=== PATIENT | female | born 1980 | race Caucasian/White ===

== ENCOUNTER 2017-03-07 08:47 | Emergency (ER) | payer OTHER, SELFPAY ==
[2017-03-07] MEDS ORDERED: Ondansetron HCl/PF 4 MG/2 ML Vial ONE (10:24)
[2017-03-07 10:35] LABS: Anion Gap 4 mmol/L (-14-95); T. Carbon Dioxide 26.8 mmol/L (1.0-85.0); pH (Venous) 7.385 (7.35-7.45); vO2 Saturation-calc 67.8 % (0.0-100.0)
[2017-03-07 10:56] LABS: #Eosinphils 0.1 thou/uL (0.0-0.7); #Lymphocytes 2.6 thou/uL (1.20-3.40); #Monocytes 0.2 thou/uL (0.11-0.59); #Neutrophils 3.7 thou/uL (1.40-6.50); %Basophils 0.1 % (0.0-1.0); %Eosinophils 1.8 % (0.0-10.0); %Lymphocytes 39.3 % (21.0-51.0); %Monocytes 2.7 % (0.0-10.0); Mean Platelet Volume 8.2 fL (7.4-10.4); Red Blood Cell (RBC) Count 4.56 mill/uL (4.20-5.40); White Blood Cell (WBC) Count 6.5 thou/uL (4.8-10.8)
[2017-03-07] MEDS ORDERED: Potassium Chloride 20 MEQ TAB ONE (11:03)
[2017-03-07] MEDS ORDERED: Insulin Regular 300 UNITS/3 ML VIAL ONE (11:09)
[2017-03-07 11:30] LABS: ALT (SGPT) 23 U/L (8-55); AST (SGOT) 38 U/L (5-34); Alkaline Phosphatase 110 U/L (40-150); Anion Gap 12 mmol/L (10-20); BUN (Urea Nitrogen) 20 mg/dL (7.0-18.7); Bilirubin, Total 0.2 mg/dL (0.2-1.2); Calc. Creatinine Clearance 0 mL/min (70-130); Calcium 9.4 mg/dL (7.8-10.44); Carbon Dioxide 26 mmol/L (22-29); Chloride 99 mmol/L (98-107); Estimated GFR-MDRD 65; Globulin 3.8 g/dL (2.4-3.5); Protein, Total 7.6 g/dL (6.0-8.3)
[2017-03-07 12:41] LABS: Bilirubin Negative (Negative); Blood, Urine Negative (Negative); Glucose, Urine (Dipstick) >=1000 mg/dL (Negative); Ketone, Urine Negative (Negative); Nitrite Negative (Negative); Protein, Urine (Dipstick) Negative (Neg-Trace); Urobilinogen 0.2 mg/dL (0.2-1.0)
[2017-03-07] MEDS ORDERED: Ketorolac Tromethamine 30 MG/ML VIAL ONE (12:51)
== END 2017-03-07 13:21 | disposition home or self-care (01) ==
LOC: ERS 08:47
DX: E10.65 Type 1 diabetes mellitus with hyperglycemia (principal); J44.9 Chronic obstructive pulmonary disease, unspecified; F41.9 Anxiety disorder, unspecified; F32.9 Major depressive disorder, single episode, unspecified
CPT/HCPCS: 36415; 36416; 80053; 81003; 82010; 82330; 82803; 85025; 96361; 96374; 96375; J1815; J1885; J2270; J2405

== ENCOUNTER 2017-04-08 21:40 | Emergency (ER) | payer SELFPAY ==
[2017-04-08 22:15] LABS: #Eosinphils 0.1 thou/uL (0.0-0.7); #Lymphocytes 3.9 thou/uL (1.20-3.40); #Monocytes 0.3 thou/uL (0.11-0.59); #Neutrophils 5.2 thou/uL (1.40-6.50); %Basophils 0.3 % (0.0-1.0); %Eosinophils 0.8 % (0.0-10.0); %Lymphocytes 40.7 % (21.0-51.0); %Monocytes 3.6 % (0.0-10.0); Hematocrit 49.6 % (36.0-47.0); Mean Platelet Volume 7.8 fL (7.4-10.4); Red Blood Cell (RBC) Count 5.57 mill/uL (4.20-5.40); White Blood Cell (WBC) Count 9.6 thou/uL (4.8-10.8)
[2017-04-08 22:32] LABS: ALT (SGPT) 46 U/L (8-55); AST (SGOT) 38 U/L (5-34); Alkaline Phosphatase 143 U/L (40-150); Anion Gap 18 mmol/L (10-20); BUN (Urea Nitrogen) 34 mg/dL (7.0-18.7); Bilirubin, Total 0.3 mg/dL (0.2-1.2); Calc. Creatinine Clearance 0 mL/min (70-130); Calcium 10.8 mg/dL (7.8-10.44); Carbon Dioxide 23 mmol/L (22-29); Chloride 103 mmol/L (98-107); Estimated GFR-MDRD 51; Globulin 4.7 g/dL (2.4-3.5); Protein, Total 9.3 g/dL (6.0-8.3)
[2017-04-08 22:56] LABS: Bilirubin Negative (Negative); Blood, Urine Negative (Negative); Glucose, Urine (Dipstick) Negative (Negative); Ketone, Urine Negative (Negative); Nitrite Negative (Negative); Protein, Urine (Dipstick) Negative (Neg-Trace); Urobilinogen 0.2 mg/dL (0.2-1.0)
--- NOTE | 2017-04-08 23:15 | CT ---
CT OF HEAD NONCONTRAST 04/08/17 INDICATION: Syncope. Reference made to 01/23/16 exam. FINDINGS: Redemonstration of cavum septum pellucidum et vergae. Ventricular system is normal in size. There is no acute intracranial hemorrhage, mass effect or midline shift. IMPRESSION: No acute intracranial abnormalities. POS: [facility]
[2017-04-08] MEDS ORDERED: Promethazine HCl 25 MG/ML VIAL ONE (23:59)
== END 2017-04-09 01:23 | disposition home or self-care (01) ==
LOC: ERS 21:40
DX: R55 Syncope and collapse (principal); E11.9 Type 2 diabetes mellitus without complications; Z79.4 Long term (current) use of insulin; W19.XXXA Unspecified fall, initial encounter; Y92.009 Unspecified place in unspecified non-institutional (private) residence as the place of occurrence of the external cause
CPT/HCPCS: 36415; 36416; 51701; 70450; 80053; 81003; 83605; 84703; 85025; 87040; 87086; 93005; 96361; 96374; A4353; J2550

== ENCOUNTER 2017-05-07 18:22 | Emergency (ER) | payer SELFPAY ==
[2017-05-07] MEDS ORDERED: Ketorolac Tromethamine 60 MG/2 ML VIAL ONE (19:42)
== END 2017-05-07 20:45 | disposition home or self-care (01) ==
LOC: ERS 18:22
DX: M62.838 Other muscle spasm (principal); G44.209 Tension-type headache, unspecified, not intractable; J44.9 Chronic obstructive pulmonary disease, unspecified; E11.9 Type 2 diabetes mellitus without complications; F41.9 Anxiety disorder, unspecified; F43.10 Post-traumatic stress disorder, unspecified; Z87.442 Personal history of urinary calculi
CPT/HCPCS: 96372; J1885

== ENCOUNTER 2017-06-01 03:27 | Emergency (ER) | payer SELFPAY | END 2017-06-01 04:29 | disposition left against medical advice (07) | LOC: ERS 03:27 | DX: Z53.21 Procedure and treatment not carried out due to patient leaving prior to being seen by health care provider (principal) ==

== ENCOUNTER 2017-06-01 04:29 | Emergency (ER) | payer OTHER ==
[2017-06-01] MEDS ORDERED: HYDROcodone/Acetaminophen 10/325 mg Tablet ONE (05:14)
[2017-06-01] MEDS ORDERED: Ketorolac Tromethamine 30 MG/ML VIAL ONE (05:14)
== END 2017-06-01 05:32 | disposition home or self-care (01) ==
LOC: SCSER 04:29
DX: K02.9 Dental caries, unspecified (principal)
CPT/HCPCS: 96372; J1885

== ENCOUNTER 2017-09-21 01:09 | Emergency (ER) | payer OTHER, SELFPAY ==
[2017-09-21] MEDS ORDERED: Ketorolac Tromethamine 30 MG/ML VIAL ONE (01:42)
[2017-09-21] MEDS ORDERED: predniSONE 20 MG TAB ONE (01:42)
== END 2017-09-21 02:05 | disposition home or self-care (01) ==
LOC: SCSER 01:09
DX: M54.2 Cervicalgia (principal); E11.9 Type 2 diabetes mellitus without complications; F41.9 Anxiety disorder, unspecified; F43.10 Post-traumatic stress disorder, unspecified; J44.9 Chronic obstructive pulmonary disease, unspecified; Z85.41 Personal history of malignant neoplasm of cervix uteri
CPT/HCPCS: 96372; J1885; J7506

== ENCOUNTER 2017-11-12 14:34 | Emergency (ER) | payer OTHER ==
[2017-11-12 15:42] LABS: #Basophils 0.1 thou/uL (0.0-0.2); #Eosinphils 0.1 thou/uL (0.0-0.7); #Lymphocytes 2.8 thou/uL (1.20-3.40); #Monocytes 0.3 thou/uL (0.11-0.59); #Neutrophils 3.9 thou/uL (1.40-6.50); %Eosinophils 1.4 % (0.0-10.0); %Lymphocytes 38.8 % (21.0-51.0); %Monocytes 3.8 % (0.0-10.0); %Neutrophils 55.1 % (42.0-75.0); Hemoglobin 12.6 g/dL (12.0-16.0); Mean Corpuscular HGB CONC 33.3 g/dL (32.0-36.0); Mean Corpuscular Hemoglobin 29.3 pg (27.0-31.0); Mean Corpuscular Volume 87.9 fl (81.0-99.0); Mean Platelet Volume 7.8 fL (7.4-10.4); Platelet Count 193 thou/uL (130-400); RBC Distribution Width 11.8 % (11.5-14.5); Red Blood Cell (RBC) Count 4.31 mill/uL (4.20-5.40); White Blood Cell (WBC) Count 7.2 thou/uL (4.8-10.8)
[2017-11-12 16:19] LABS: Bilirubin Negative (Negative); Blood, Urine Large (Negative); Clarity CLOUDY (Clear); Glucose, Urine (Dipstick) Negative (Negative); Leukocyte Negative (Negative); Nitrite Negative (Negative); Protein, Urine (Dipstick) Negative (Neg-Trace); Specific Gravity, Urine 1.022 (1.002-1.036); Urobilinogen 0.2 mg/dL (0.2-1.0); pH, Urine 5.5 (5.0-9.0)
[2017-11-12 16:22] LABS: Bacteria/HPF None Seen HPF (None Seen); Hyaline Casts/LPF 0-3 HYALINE CAST LPF (0-3 Hyaline); Pathc Cast-AUWi Flag 0.29 (0-2.49); Pregnancy Test - Urine (BHCG) Negative (Negative); Pregu Control Background? CLEAR/WHITE (CLR/WHITE); Pregu Control Bar Appear? YES (CONTROL BAR); RBC/HPF GREATER THAN 50-TNTC HPF (0-3); Specific Gravity 1.022 (1.002-1.036); Squamous Epithelial 0-3 HPF (0-3); WBC/HPF 0-3 HPF (0-3)
[2017-11-12] MEDS ORDERED: Ibuprofen 200 MG TAB ONE (17:34)
== END 2017-11-12 17:43 | disposition home or self-care (01) ==
LOC: ERS 14:34
DX: N93.9 Abnormal uterine and vaginal bleeding, unspecified (principal); R31.9 Hematuria, unspecified; E11.9 Type 2 diabetes mellitus without complications; J45.909 Unspecified asthma, uncomplicated; F41.9 Anxiety disorder, unspecified; F43.10 Post-traumatic stress disorder, unspecified; Z79.4 Long term (current) use of insulin; Z87.442 Personal history of urinary calculi
CPT/HCPCS: 36415; 81003; 81015; 81025; 84702; 85025; 86900; 86901; 99284

== ENCOUNTER 2018-02-13 10:30 | Emergency (ER) | payer OTHER, SELFPAY ==
[2018-02-13] MEDS ORDERED: Dextrose 50% Abboject 50 ML SYRINGE ONE (11:33)
[2018-02-13 12:19] LABS: #Lymphocytes 1.6 thou/uL (1.20-3.40); #Monocytes 0.3 thou/uL (0.11-0.59); #Neutrophils 5.4 thou/uL (1.40-6.50); %Basophils 0.4 % (0.0-1.0); %Eosinophils 0.3 % (0.0-10.0); %Lymphocytes 22.2 % (21.0-51.0); %Monocytes 3.9 % (0.0-10.0); %Neutrophils 73.1 % (42.0-75.0); Hemoglobin 11.5 g/dL (12.0-16.0); Mean Corpuscular Hemoglobin 28.7 pg (27.0-31.0); Mean Corpuscular Volume 89.6 fL (78.0-98.0); Mean Platelet Volume 7.8 fL (7.4-10.4); Platelet Count 222 thou/uL (130-400); RBC Distribution Width 12.5 % (11.5-14.5); Red Blood Cell (RBC) Count 4.02 mill/uL (4.20-5.40); White Blood Cell (WBC) Count 7.4 thou/uL (4.8-10.8)
[2018-02-13 12:39] LABS: BHCG - Serum Negative (NEGATIVE); Pregs Control Background? CLEAR/WHITE (CLR/WHITE); Pregs Control Bar Appear? YES (CONTROL BAR)
[2018-02-13 12:40] LABS: CKMB 1.4 ng/mL (0-6.6); Troponin I Less than 0.010 ng/mL (< 0.028)
[2018-02-13 12:43] LABS: ALT (SGPT) 20 U/L (8-55); AST (SGOT) 19 U/L (5-34); Albumin 3.6 g/dL (3.5-5.0); Alkaline Phosphatase 102 U/L (40-150); Anion Gap 10 mmol/L (10-20); BUN (Urea Nitrogen) 10 mg/dL (7.0-18.7); Bilirubin, Total 0.2 mg/dL (0.2-1.2); Calc. Creatinine Clearance 0 mL/min (70-130); Carbon Dioxide 26 mmol/L (22-29); Chloride 105 mmol/L (98-107); Estimated GFR-MDRD 83; Globulin 3.2 g/dL (2.4-3.5); Glucose 101 mg/dL (70-105); Potassium 3.1 mmol/L (3.5-5.1); Protein, Total 6.8 g/dL (6.0-8.3); Sodium 138 mmol/L (136-145)
[2018-02-13 13:25] LABS: Bilirubin Negative (Negative); Blood, Urine Trace (Negative); Clarity CLEAR (Clear); Glucose, Urine (Dipstick) Negative (Negative); Leukocyte Negative (Negative); Nitrite Negative (Negative); Protein, Urine (Dipstick) Negative (Neg-Trace); Specific Gravity, Urine 1.015 (1.002-1.036); Urobilinogen 0.2 mg/dL (0.2-1.0); pH, Urine 5.5 (5.0-9.0)
[2018-02-13 13:27] LABS: Bacteria/HPF None Seen HPF (None Seen); Hyaline Casts/LPF 0-3 HYALINE CAST LPF (0-3 Hyaline); Pathc Cast-AUWi Flag 0.87 (0-2.49); RBC/HPF 0-3 HPF (0-3); Squamous Epithelial 0-3 HPF (0-3); WBC/HPF 0-3 HPF (0-3)
--- NOTE | 2018-02-18 16:35 | EKG ---
Test Reason : Blood Pressure : / mmHG Vent. Rate : 067 BPM Atrial Rate : 067 BPM P-R Int : 178 ms QRS Dur : 090 ms QT Int : 446 ms P-R-T Axes : 049 039 017 degrees QTc Int : 471 ms Normal sinus rhythm Normal ECG Confirmed by RUDDY MCGINNIS ([id number]), greeting card editor PHANI JENNINGS ([id number]) on 02/18/2018 4:35:08 PM Referred By: Confirmed By:RUDDY MCGINNIS
== END 2018-02-13 14:47 | disposition home or self-care (01) ==
LOC: ERS 10:30
DX: E11.649 Type 2 diabetes mellitus with hypoglycemia without coma (principal); J45.909 Unspecified asthma, uncomplicated; J44.9 Chronic obstructive pulmonary disease, unspecified; Z87.442 Personal history of urinary calculi; F41.9 Anxiety disorder, unspecified; F43.10 Post-traumatic stress disorder, unspecified; Z79.4 Long term (current) use of insulin; Z79.899 Other long term (current) drug therapy
CPT/HCPCS: 36416; 80053; 81003; 81015; 82553; 84484; 84703; 85025; 93005; 96361; 96374

== ENCOUNTER 2018-05-12 16:42 | Emergency (ER) | payer SELFPAY ==
[2018-05-12] MEDS ORDERED: Ketorolac Tromethamine 30 MG/ML VIAL ONE (17:01)
[2018-05-12 17:14] LABS: Bilirubin Negative (Negative); Blood, Urine Negative (Negative); Clarity CLEAR (Clear); Glucose, Urine (Dipstick) Negative (Negative); Leukocyte Negative (Negative); Nitrite Negative (Negative); Protein, Urine (Dipstick) Negative (Neg-Trace); Specific Gravity, Urine 1.032 (1.002-1.036); Urobilinogen 0.2 mg/dL (0.2-1.0); pH, Urine 5.5 (5.0-9.0)
[2018-05-12 17:16] LABS: Pregnancy Test - Urine (BHCG) Negative (Negative); Pregu Control Background? CLEAR/WHITE (CLR/WHITE); Pregu Control Bar Appear? YES (CONTROL BAR); Specific Gravity 1.032 (1.002-1.036)
[2018-05-12 17:23] LABS: #Basophils 0.1 thou/uL (0.0-0.2); #Eosinphils 0.1 thou/uL (0.0-0.7); #Lymphocytes 3.3 thou/uL (1.20-3.40); #Monocytes 0.4 thou/uL (0.11-0.59); #Neutrophils 5.3 thou/uL (1.40-6.50); %Basophils 0.9 % (0.0-1.0); %Eosinophils 1.3 % (0.0-10.0); %Lymphocytes 35.7 % (21.0-51.0); %Monocytes 4.3 % (0.0-10.0); %Neutrophils 57.9 % (42.0-75.0); Mean Corpuscular HGB CONC 33.6 g/dL (32.0-36.0); Mean Corpuscular Hemoglobin 29.3 pg (27.0-31.0); Mean Corpuscular Volume 87.3 fL (78.0-98.0); Mean Platelet Volume 7.7 fL (7.4-10.4); Platelet Count 248 thou/uL (130-400); RBC Distribution Width 11.8 % (11.5-14.5); Red Blood Cell (RBC) Count 4.45 mill/uL (4.20-5.40); White Blood Cell (WBC) Count 9.1 thou/uL (4.8-10.8)
[2018-05-12 17:43] LABS: ALT (SGPT) 20 U/L (8-55); AST (SGOT) 17 U/L (5-34); Albumin 3.9 g/dL (3.5-5.0); Alkaline Phosphatase 114 U/L (40-150); Anion Gap 11 mmol/L (10-20); BUN (Urea Nitrogen) 18 mg/dL (7.0-18.7); Bilirubin, Total Less than 0.2 mg/dL (0.2-1.2); Calc. Creatinine Clearance 0 mL/min (70-130); Calcium 9.6 mg/dL (7.8-10.44); Carbon Dioxide 27 mmol/L (22-29); Chloride 105 mmol/L (98-107); Estimated GFR-MDRD 76; Globulin 3.6 g/dL (2.4-3.5); Glucose 125 mg/dL (70-105); Potassium 4.3 mmol/L (3.5-5.1); Protein, Total 7.5 g/dL (6.0-8.3); Sodium 139 mmol/L (136-145)
[2018-05-12] MEDS ORDERED: Diazepam 5 MG TAB ONE (18:42)
--- NOTE | 2018-05-12 19:29 | CT ---
CT ABDOMEN AND PELVIS WITHOUT CONTRAST: 05/12/18 Multiple axial tomograms obtained through the abdomen and pelvis without IV enhancement. INDICATION: Low back pain. Back pain. History of prior kidney stones. COMPARISON: Comparison made to CT abdomen and pelvis 02/09/17. Lung bases are clear. Liver, spleen, and pancreas unremarkable given the limitations of a noncontrast study. The patient is post cholecystectomy. Adrenal glands normal. Kidneys show no evidence of hydronephrosis. Ureters are normal caliber. There are small nonobstructin g calculi in the upper collecting structures of both kidneys. These are more numerous in the lower po le collecting structures bilaterally. These calculi arrange in size from 2 to 4 mm. The urinary bladder is contracted and not adequately evaluated. Small bowel loops normal caliber. Transverse colon and left colon are nondistended. No evidence of appendicitis. No evidence of acute i nflammation. Uterus and adnexa unremarkable. IMPRESSION: There are nonobstructing calculi in the upper pole collecting structures of both kidneys. No obstruct ing calculus identified in either ureter. POS: [facility]
== END 2018-05-12 18:44 | disposition home or self-care (01) ==
LOC: ERS 16:42
DX: M54.5 Low back pain (principal); F41.9 Anxiety disorder, unspecified; F43.10 Post-traumatic stress disorder, unspecified; J45.909 Unspecified asthma, uncomplicated; Z87.442 Personal history of urinary calculi
CPT/HCPCS: 36415; 74176; 80053; 81003; 81025; 85025; 87086; 96374; J1885

== ENCOUNTER 2018-05-13 15:45 | Emergency (ER) | payer MEDICAID, SELFPAY ==
[2018-05-13 16:16] LABS: Bacteria/HPF None Seen HPF (None Seen); Hyaline Casts/LPF 0-3 HYALINE CAST LPF (0-3 Hyaline); Pathc Cast-AUWi Flag 0.58 (0-2.49); Squamous Epithelial 0-3 HPF (0-3); WBC/HPF 0-3 HPF (0-3)
[2018-05-13 16:21] LABS: Clarity CLEAR (Clear); Glucose, Urine (Dipstick) Negative (Negative); Protein, Urine (Dipstick) Negative (Neg-Trace); Specific Gravity, Urine 1.022 (1.002-1.036)
[2018-05-13 16:22] LABS: Leukocyte Negative (Negative); Nitrite Unable to Interpret (Negative)
[2018-05-13 16:23] LABS: Bilirubin Unable to Interpret (Negative); Blood, Urine Small (Negative); Urobilinogen UNABLE TO INTERPRET mg/dL (0.2-1.0)
[2018-05-13] MEDS ORDERED: Acetaminophen/Codeine 30-300mg Tablet ONE (16:39)
== END 2018-05-13 16:55 | disposition home or self-care (01) ==
LOC: ERS 15:45
DX: O26.831 Pregnancy related renal disease, first trimester (principal); N20.0 Calculus of kidney; O99.511 Diseases of the respiratory system complicating pregnancy, first trimester; J44.9 Chronic obstructive pulmonary disease, unspecified; O99.341 Other mental disorders complicating pregnancy, first trimester; F41.9 Anxiety disorder, unspecified; F43.10 Post-traumatic stress disorder, unspecified; O24.111 Pre-existing type 2 diabetes mellitus, in pregnancy, first trimester; E11.9 Type 2 diabetes mellitus without complications; Z3A.12 12 weeks gestation of pregnancy
CPT/HCPCS: 81003; 81015; 99283

== ENCOUNTER 2018-06-10 09:55 | Emergency (ER) | payer MEDICAID, SELFPAY | END 2018-06-10 10:12 | disposition home or self-care (01) | LOC: SCSER 09:55 | DX: S02.5XXA Fracture of tooth (traumatic), initial encounter for closed fracture (principal); J44.9 Chronic obstructive pulmonary disease, unspecified; E11.9 Type 2 diabetes mellitus without complications; X58.XXXA Exposure to other specified factors, initial encounter | CPT/HCPCS: 99282 ==

== ENCOUNTER 2018-08-09 17:49 | Emergency (ER) | payer BC, SELFPAY ==
[2018-08-09 19:08] LABS: #Basophils 0.1 thou/uL (0.0-0.2); #Eosinphils 0.4 thou/uL (0.0-0.7); #Lymphocytes 2.3 thou/uL (1.20-3.40); #Monocytes 0.3 thou/uL (0.11-0.59); #Neutrophils 5.7 thou/uL (1.40-6.50); %Basophils 1.2 % (0.0-1.0); %Lymphocytes 26.1 % (21.0-51.0); %Monocytes 3.4 % (0.0-10.0); %Neutrophils 64.4 % (42.0-75.0); Hemoglobin 12.3 g/dL (12.0-16.0); Mean Corpuscular HGB CONC 33.4 g/dL (32.0-36.0); Mean Corpuscular Hemoglobin 29.9 pg (27.0-31.0); Mean Corpuscular Volume 89.3 fL (78.0-98.0); Mean Platelet Volume 7.2 fL (7.4-10.4); Platelet Count 198 thou/uL (130-400); RBC Distribution Width 12.2 % (11.5-14.5); Red Blood Cell (RBC) Count 4.11 mill/uL (4.20-5.40); White Blood Cell (WBC) Count 8.8 thou/uL (4.8-10.8)
[2018-08-09 19:19] LABS: Anion Gap 12 mmol/L (10-20); BUN (Urea Nitrogen) 15 mg/dL (7.0-18.7); Calc. Creatinine Clearance 0 mL/min (70-130); Calcium 9.8 mg/dL (7.8-10.44); Carbon Dioxide 28 mmol/L (22-29); Chloride 104 mmol/L (98-107); Estimated GFR-MDRD 78; Glucose 211 mg/dL (70-105); Potassium 4.1 mmol/L (3.5-5.1); Sodium 140 mmol/L (136-145)
[2018-08-09] MEDS ORDERED: Morphine 4 MG/ML VIAL ONE ×2 (19:34→20:46)
--- NOTE | 2018-08-09 21:29 | ULT ---
LIMITED SONOGRAM RIGHT FACIAL SOFT TISSUES: 08/09/2018 HISTORY: Right facial pain, adjacent to the right ear and cheek bone. FINDINGS: Limited sonographic evaluation was performed in the region of the patient's area of pain. No fluid c ollection or mass is seen. No enlarged lymph nodes are seen in the region of the patient's focal are a of pain. IMPRESSION: No mass or fluid collection is seen to correspond to the patient's area of pain in the right facial s oft tissues. The patient's area of pain should be further managed clinically and, if warranted, a fo llow-up CT scan neck can be performed. POS: [facility]
== END 2018-08-09 21:05 | disposition home or self-care (01) ==
LOC: SCSER 17:49
DX: R22.0 Localized swelling, mass and lump, head (principal); E11.9 Type 2 diabetes mellitus without complications; J44.9 Chronic obstructive pulmonary disease, unspecified; F43.10 Post-traumatic stress disorder, unspecified; F41.9 Anxiety disorder, unspecified; Z87.442 Personal history of urinary calculi; Z79.4 Long term (current) use of insulin; Z79.891 Long term (current) use of opiate analgesic
CPT/HCPCS: 76999; 80048; 85025; 96374; 96376; J2270

== ENCOUNTER 2018-09-12 23:06 | Emergency (ER) | payer BC ==
--- NOTE | 2018-09-12 23:47 | RAD ---
CHEST TWO VIEWS: 09/12/18 HISTORY: Cough. COMPARISON: 02/09/17. FINDINGS: Patchy alveolar parenchymal changes are noted in the left perihilar region. Evidence for minimal pneu monia. Heart size is normal. No pleural effusion. The right lung appears clear. IMPRESSION: Minimal left perihilar alveolar parenchymal change concerning for pneumonia. Treatment and short term followup for complete clearing is recommended. POS: [facility]
[2018-09-13 00:10] LABS: #Basophils 0.1 thou/uL (0.0-0.2); #Eosinphils 0.2 thou/uL (0.0-0.7); #Lymphocytes 1.6 thou/uL (1.20-3.40); #Monocytes 0.7 thou/uL (0.11-0.59); %Basophils 0.9 % (0.0-1.0); %Eosinophils 2.6 % (0.0-10.0); %Lymphocytes 20.8 % (21.0-51.0); %Monocytes 8.7 % (0.0-10.0); Hemoglobin 13.4 g/dL (12.0-16.0); Mean Corpuscular HGB CONC 33.6 g/dL (32.0-36.0); Mean Corpuscular Hemoglobin 29.9 pg (27.0-31.0); Mean Platelet Volume 7.4 fL (7.4-10.4); Platelet Count 222 thou/uL (130-400); RBC Distribution Width 11.9 % (11.5-14.5); White Blood Cell (WBC) Count 7.5 thou/uL (4.8-10.8)
[2018-09-13 00:22] LABS: BHCG - Serum Negative (NEGATIVE); Pregs Control Background? CLEAR/WHITE (CLR/WHITE); Pregs Control Bar Appear? YES (CONTROL BAR)
[2018-09-13] MEDS ORDERED: Ketorolac Tromethamine 30 MG/ML VIAL ONE (00:30)
[2018-09-13] MEDS ORDERED: Azithromycin 250 MG TAB ONE (00:30)
[2018-09-13] MEDS ORDERED: Ondansetron PF 4 MG/2 ML Vial ONE (00:30)
[2018-09-13 00:32] LABS: ALT (SGPT) 18 U/L (8-55); AST (SGOT) 19 U/L (5-34); Albumin 4.1 g/dL (3.5-5.0); Alkaline Phosphatase 114 U/L (40-150); Anion Gap 12 mmol/L (10-20); BUN (Urea Nitrogen) 14 mg/dL (7.0-18.7); Bilirubin, Total 0.4 mg/dL (0.2-1.2); Calc. Creatinine Clearance 0 mL/min (70-130); Calcium 9.4 mg/dL (7.8-10.44); Carbon Dioxide 28 mmol/L (22-29); Chloride 98 mmol/L (98-107); Estimated GFR-MDRD 59; Globulin 3.6 g/dL (2.4-3.5); Glucose 152 mg/dL (70-105); Lipase 33 U/L (8-78); Potassium 3.9 mmol/L (3.5-5.1); Protein, Total 7.7 g/dL (6.0-8.3); Sodium 134 mmol/L (136-145)
== END 2018-09-13 02:28 | disposition home or self-care (01) ==
LOC: ERS 23:06
DX: J18.9 Pneumonia, unspecified organism (principal); J11.1 Influenza due to unidentified influenza virus with other respiratory manifestations; J44.9 Chronic obstructive pulmonary disease, unspecified; F41.9 Anxiety disorder, unspecified; E11.9 Type 2 diabetes mellitus without complications; F43.10 Post-traumatic stress disorder, unspecified; Z87.442 Personal history of urinary calculi
CPT/HCPCS: 36415; 71046; 80053; 83690; 84703; 85025; 87804; 96361; 96374; 96375; J1885; J2405

== ENCOUNTER 2018-12-15 14:01 | Emergency (ER) | payer BC, SELFPAY | END 2018-12-15 14:17 | disposition home or self-care (01) | LOC: SCSER 14:01 | DX: K02.9 Dental caries, unspecified (principal); E11.9 Type 2 diabetes mellitus without complications; J44.9 Chronic obstructive pulmonary disease, unspecified; F41.9 Anxiety disorder, unspecified; F43.10 Post-traumatic stress disorder, unspecified | CPT/HCPCS: 99282 ==

== ENCOUNTER 2019-02-18 17:33 | Emergency (ER) | payer SELFPAY ==
[2019-02-18 18:56] LABS: Bilirubin Negative (Negative); Blood, Urine 2+ (Negative); Clarity Turbid (Clear); Glucose, Urine (Dipstick) Greater than 1000 mg/dL (Negative); Leukocyte Negative Leu/uL (Negative); Nitrite Negative (Negative); Protein, Urine (Dipstick) 20 mg/dL (Neg-Trace); Urobilinogen Normal mg/dL (Less than 2)
[2019-02-18 18:57] LABS: Pregnancy Test - Urine (BHCG) Negative (Negative); Pregu Control Background? CLEAR/WHITE (CLR/WHITE); Pregu Control Bar Appear? YES (CONTROL BAR); Specific Gravity 1.028 (1.002-1.036)
[2019-02-18 19:04] LABS: Bacteria/HPF Rare-Few HPF (None Seen); Mucous/LPF 1+ LPF (<2+); WBC/HPF 0-3 HPF (0-3)
[2019-02-18] MEDS ORDERED: Cyclobenzaprine 10 MG TAB ONE ×2 (19:35→19:43)
[2019-02-18] MEDS ORDERED: Ketorolac Tromethamine 60 MG/2 ML VIAL ONE (19:35)
--- NOTE | 2019-02-18 20:07 | RAD ---
Lumbar spine 3 views: 02/18/2019 COMPARISON: None HISTORY: Injury FINDINGS: No fracture or dislocation. Lumbar pedicles appear intact on frontal imaging. Lateral imagi ng demonstrates normal vertebral body height and alignment. IMPRESSION: No acute findings.
== END 2019-02-18 21:03 | disposition home or self-care (01) ==
LOC: ERS 17:33
DX: M54.5 Low back pain (principal); E11.9 Type 2 diabetes mellitus without complications; J45.909 Unspecified asthma, uncomplicated; J44.9 Chronic obstructive pulmonary disease, unspecified; F41.9 Anxiety disorder, unspecified; F43.10 Post-traumatic stress disorder, unspecified; Z79.4 Long term (current) use of insulin; Z87.891 Personal history of nicotine dependence; V43.52XA Car driver injured in collision with other type car in traffic accident, initial encounter
CPT/HCPCS: 72100; 81003; 81015; 81025; 96372; J1885

== ENCOUNTER 2019-04-11 10:10 | Emergency (ER) | payer SELFPAY ==
[2019-04-11 10:43] LABS: BHCG - Serum Negative (NEGATIVE); Pregs Control Background? CLEAR/WHITE (CLR/WHITE); Pregs Control Bar Appear? YES (CONTROL BAR)
[2019-04-11 10:59] LABS: ALT (SGPT) 32 U/L (8-55); AST (SGOT) 31 U/L (5-34); Albumin 4.1 g/dL (3.5-5.0); Alkaline Phosphatase 88 U/L (40-110); Anion Gap 12 mmol/L (10-20); BUN (Urea Nitrogen) 18 mg/dL (7.0-18.7); Bilirubin, Total 0.3 mg/dL (0.2-1.2); Calc. Creatinine Clearance 0 mL/min (70-130); Calcium 9.8 mg/dL (7.8-10.44); Carbon Dioxide 31 mmol/L (22-29); Chloride 101 mmol/L (98-107); Estimated GFR-MDRD 69; Globulin 3.3 g/dL (2.4-3.5); Glucose 169 mg/dL (70-105); Potassium 4.2 mmol/L (3.5-5.1); Protein, Total 7.4 g/dL (6.0-8.3); Sodium 140 mmol/L (136-145)
[2019-04-11 11:25] LABS: Bilirubin Negative (Negative); Blood, Urine 3+ (Negative); Clarity Turbid (Clear); Glucose, Urine (Dipstick) Normal (Negative); Leukocyte Negative Leu/uL (Negative); Nitrite Negative (Negative); Protein, Urine (Dipstick) 20 mg/dL (Neg-Trace); RBC/HPF Greater than 50 HPF (0-3); Urobilinogen Normal mg/dL (Less than 2)
[2019-04-11] MEDS ORDERED: Ketorolac Tromethamine 60 MG/2 ML VIAL ONE (11:25)
[2019-04-11] MEDS ORDERED: Ketorolac Tromethamine 30 MG/ML VIAL ONE (11:26)
[2019-04-11 11:27] LABS: Bacteria/HPF 1+ HPF (None Seen)
--- NOTE | 2019-04-11 11:58 | CT ---
CT OF THE ABDOMEN AND PELVIS WITHOUT CONTRAST: COMPARISON: 05/12/2018. HISTORY: Abdominal pain. TECHNIQUE: Multiple contiguous axial images were obtained in a CT of the abdomen and pelvis without contrast. S agittal and coronal reformats were performed. FINDINGS: The patient is status post cholecystectomy. Nonobstructing calcifications are seen in both kidneys m easuring up to 8 mm in size. No calcifications are seen in either ureter and no hydronephrosis is se en. The liver, adrenal glands, and pancreas are unremarkable. Calcifications in the spleen are from prio r granulomatous disease. The reproductive organs are unremarkable. The large and small bowel are unremarkable. The appendix is normal. No abdominal or pelvic lymphadenopathy are seen. The osseous structures, abdominal wall soft tissues, and visualized inferior thorax are unremarkable. IMPRESSION: Nonobstructing bilateral renal calcifications. POS: [facility]
[2019-04-11 11:59] LABS: #Eosinphils 0.1 thou/uL (0.0-0.7); #Lymphocytes 2.5 thou/uL (1.20-3.40); #Monocytes 0.3 thou/uL (0.11-0.59); #Neutrophils 3.3 thou/uL (1.40-6.50); %Basophils 0.3 % (0.0-1.0); %Eosinophils 1.6 % (0.0-10.0); %Lymphocytes 40.2 % (21.0-51.0); %Monocytes 4.1 % (0.0-10.0); %Neutrophils 53.8 % (42.0-75.0); Hemoglobin 12.4 g/dL (12.0-16.0); Mean Corpuscular HGB CONC 32.9 g/dL (32.0-36.0); Mean Corpuscular Hemoglobin 29.3 pg (27.0-31.0); Mean Platelet Volume 8.2 fL (7.4-10.4); Platelet Count 204 thou/uL (130-400); RBC Distribution Width 11.6 % (11.5-14.5); Red Blood Cell (RBC) Count 4.23 mill/uL (4.20-5.40); White Blood Cell (WBC) Count 6.2 thou/uL (4.8-10.8)
[2019-04-11] MEDS ORDERED: Ondansetron PF 4 MG/2 ML Vial ONE (12:46)
[2019-04-11] MEDS ORDERED: Morphine 4 MG/ML VIAL ONE (12:46)
== END 2019-04-11 13:07 | disposition home or self-care (01) ==
LOC: ERS 10:10
DX: N20.0 Calculus of kidney (principal); E66.9 Obesity, unspecified; E11.9 Type 2 diabetes mellitus without complications; F43.10 Post-traumatic stress disorder, unspecified; F41.9 Anxiety disorder, unspecified; Z87.891 Personal history of nicotine dependence; Z79.4 Long term (current) use of insulin; Z79.899 Other long term (current) drug therapy; J44.9 Chronic obstructive pulmonary disease, unspecified
CPT/HCPCS: 36415; 74176; 80053; 81003; 81015; 84703; 85025; J1885; J2270; J2405

== ENCOUNTER 2019-04-19 06:31 | Emergency (ER) | payer SELFPAY ==
[2019-04-19] MEDS ORDERED: Morphine 4 MG/ML VIAL ONE (06:48)
[2019-04-19] MEDS ORDERED: Ketorolac Tromethamine 30 MG/ML VIAL ONE (06:49)
[2019-04-19] MEDS ORDERED: Morphine 2 MG/ML SYRINGE ONE ×2 (06:49→08:51)
[2019-04-19] MEDS ORDERED: Ondansetron PF 4 MG/2 ML Vial ONE ×2 (06:49→06:51)
[2019-04-19 07:02] LABS: #Eosinphils 0.1 thou/uL (0.0-0.7); #Lymphocytes 1.9 thou/uL (1.20-3.40); #Monocytes 0.4 thou/uL (0.11-0.59); #Neutrophils 3.6 thou/uL (1.40-6.50); %Basophils 0.2 % (0.0-1.0); %Eosinophils 1.8 % (0.0-10.0); %Lymphocytes 31.1 % (21.0-51.0); %Monocytes 6.5 % (0.0-10.0); %Neutrophils 60.4 % (42.0-75.0); Hemoglobin 12.1 g/dL (12.0-16.0); Mean Corpuscular HGB CONC 33.8 g/dL (32.0-36.0); Mean Corpuscular Hemoglobin 29.9 pg (27.0-31.0); Mean Corpuscular Volume 88.3 fL (78.0-98.0); Mean Platelet Volume 7.9 fL (7.4-10.4); Platelet Count 187 thou/uL (130-400); RBC Distribution Width 11.4 % (11.5-14.5); Red Blood Cell (RBC) Count 4.05 mill/uL (4.20-5.40)
[2019-04-19 07:20] LABS: ALT (SGPT) 39 U/L (8-55); AST (SGOT) 38 U/L (5-34); Albumin 4.1 g/dL (3.5-5.0); Alkaline Phosphatase 87 U/L (40-110); Anion Gap 14 mmol/L (10-20); BUN (Urea Nitrogen) 16 mg/dL (7.0-18.7); Bilirubin, Total 0.4 mg/dL (0.2-1.2); Calc. Creatinine Clearance 0 mL/min (70-130); Calcium 9.3 mg/dL (7.8-10.44); Carbon Dioxide 26 mmol/L (22-29); Chloride 100 mmol/L (98-107); Estimated GFR-MDRD 58; Globulin 3.3 g/dL (2.4-3.5); Glucose 250 mg/dL (70-105); Lipase 30 U/L (8-78); Protein, Total 7.4 g/dL (6.0-8.3); Sodium 136 mmol/L (136-145)
[2019-04-19 08:50] LABS: Bacteria/HPF None Seen HPF (None Seen); Bilirubin Negative (Negative); Blood, Urine 3+ (Negative); Clarity Turbid (Clear); Glucose, Urine (Dipstick) 50 mg/dL (Negative); Leukocyte Negative Leu/uL (Negative); Nitrite Negative (Negative); Protein, Urine (Dipstick) 100 mg/dL (Neg-Trace); RBC/HPF Greater than 50 HPF (0-3); Urobilinogen Normal mg/dL (Less than 2); WBC/HPF None Seen HPF (0-3)
[2019-04-19] MEDS ORDERED: traMADol HCl 50 MG TAB ONE (08:51)
[2019-04-19 08:53] LABS: Pregnancy Test - Urine (BHCG) Negative (Negative); Pregu Control Background? CLEAR/WHITE (CLR/WHITE); Pregu Control Bar Appear? YES (CONTROL BAR); Specific Gravity 1.025 (1.002-1.036)
== END 2019-04-19 09:25 | disposition home or self-care (01) ==
LOC: ERS 06:31
DX: N20.0 Calculus of kidney (principal); R11.2 Nausea with vomiting, unspecified; E11.9 Type 2 diabetes mellitus without complications; J44.9 Chronic obstructive pulmonary disease, unspecified; F43.10 Post-traumatic stress disorder, unspecified; F41.9 Anxiety disorder, unspecified; E66.9 Obesity, unspecified; Z79.4 Long term (current) use of insulin
CPT/HCPCS: 80053; 81003; 81015; 81025; 83690; 85025; 96374; 96375; 96376; J1885; J2270; J2405

== ENCOUNTER 2019-05-27 03:18 | Emergency (ER) | payer OTHER, SELFPAY ==
[2019-05-27] MEDS ORDERED: Ondansetron PF 4 MG/2 ML Vial ONE (03:35)
[2019-05-27] MEDS ORDERED: Ketorolac Tromethamine 30 MG/ML VIAL ONE (03:35)
[2019-05-27 04:33] LABS: #Eosinphils 0.1 thou/uL (0.0-0.7); #Lymphocytes 2.5 thou/uL (1.20-3.40); #Monocytes 0.4 thou/uL (0.11-0.59); #Neutrophils 4.3 thou/uL (1.40-6.50); %Basophils 0.4 % (0.0-1.0); %Eosinophils 1.2 % (0.0-10.0); %Lymphocytes 34.3 % (21.0-51.0); %Monocytes 5.1 % (0.0-10.0); Hemoglobin 12.9 g/dL (12.0-16.0); Mean Corpuscular HGB CONC 34.1 g/dL (32.0-36.0); Mean Corpuscular Hemoglobin 29.7 pg (27.0-31.0); Mean Corpuscular Volume 87.2 fL (78.0-98.0); Mean Platelet Volume 8.2 fL (7.4-10.4); Platelet Count 191 thou/uL (130-400); RBC Distribution Width 11.2 % (11.5-14.5); Red Blood Cell (RBC) Count 4.34 mill/uL (4.20-5.40); White Blood Cell (WBC) Count 7.3 thou/uL (4.8-10.8)
[2019-05-27] MEDS ORDERED: Morphine 4 MG/ML VIAL ONE ×2 (04:43→05:30)
[2019-05-27 04:59] LABS: ALT (SGPT) 40 U/L (8-55); AST (SGOT) 34 U/L (5-34); Albumin 4.3 g/dL (3.5-5.0); Alkaline Phosphatase 83 U/L (40-110); Anion Gap 14 mmol/L (10-20); BUN (Urea Nitrogen) 14 mg/dL (7.0-18.7); Bilirubin, Total 0.3 mg/dL (0.2-1.2); Calc. Creatinine Clearance 0 mL/min (70-130); Calcium 9.7 mg/dL (7.8-10.44); Carbon Dioxide 29 mmol/L (22-29); Chloride 101 mmol/L (98-107); Estimated GFR-MDRD 84; Globulin 3.3 g/dL (2.4-3.5); Glucose 102 mg/dL (70-105); Potassium 3.7 mmol/L (3.5-5.1); Protein, Total 7.6 g/dL (6.0-8.3); Sodium 140 mmol/L (136-145)
[2019-05-27] MEDS ORDERED: HYDROcodone/Acetaminophen 10/325 mg Tablet ONE (05:30)
[2019-05-27 06:04] LABS: Bacteria/HPF None Seen HPF (None Seen); Bilirubin 1+ (Negative); Blood, Urine 3+ (Negative); Clarity Turbid (Clear); Glucose, Urine (Dipstick) 30 mg/dL (Negative); Leukocyte Negative Leu/uL (Negative); Mucous/LPF 2+ LPF (<2+); Nitrite 1+ (Negative); Protein, Urine (Dipstick) 70 mg/dL (Neg-Trace); RBC/HPF Greater than 50 HPF (0-3); Urobilinogen 3 mg/dL (Less than 2)
== END 2019-05-27 06:27 | disposition home or self-care (01) ==
LOC: ERS 03:18
DX: N20.0 Calculus of kidney (principal); R11.2 Nausea with vomiting, unspecified; E66.9 Obesity, unspecified; E11.9 Type 2 diabetes mellitus without complications; J44.9 Chronic obstructive pulmonary disease, unspecified; F41.9 Anxiety disorder, unspecified; F43.10 Post-traumatic stress disorder, unspecified; Z87.891 Personal history of nicotine dependence; Z79.4 Long term (current) use of insulin; Z79.899 Other long term (current) drug therapy
CPT/HCPCS: 51701; 80053; 81003; 81015; 85025; 96361; 96374; 96375; 96376; A4353; J1885; J2270; J2405

== ENCOUNTER 2019-05-31 11:55 | Outpatient (CLI) | payer OTHER ==
[2019-05-31 14:08] LABS: Hemoglobin 13.1 g/dL (12.0-16.0); Mean Corpuscular HGB CONC 32.9 g/dL (32.0-36.0); Mean Corpuscular Hemoglobin 29.3 pg (27.0-31.0); Mean Corpuscular Volume 88.9 fL (78.0-98.0); Mean Platelet Volume 8.7 fL (7.4-10.4); Platelet Count 201 thou/uL (130-400); RBC Distribution Width 11.4 % (11.5-14.5); Red Blood Cell (RBC) Count 4.47 mill/uL (4.20-5.40); White Blood Cell (WBC) Count 6.5 thou/uL (4.8-10.8)
[2019-05-31 14:22] LABS: Bilirubin Negative (Negative); Blood, Urine 3+ (Negative); Clarity Clear (Clear); Glucose, Urine (Dipstick) 50 mg/dL (Negative); Leukocyte Negative Leu/uL (Negative); Nitrite Negative (Negative); Protein, Urine (Dipstick) 10 mg/dL (Neg-Trace); RBC/HPF Greater than 50 HPF (0-3); Squamous Epithelial 0-3 HPF (0-3); Urobilinogen Normal mg/dL (Less than 2); WBC/HPF 0-3 HPF (0-3)
[2019-05-31 14:24] LABS: Bacteria/HPF 1+ HPF (None Seen)
[2019-05-31 14:25] LABS: INR-International Normal Ratio 0.9; PTT 27.3 SEC (22.9-36.1); Prothrombin Time 12.5 SEC (12.0-14.7)
[2019-05-31 14:36] LABS: Anion Gap 13 mmol/L (10-20); BUN (Urea Nitrogen) 15 mg/dL (7.0-18.7); Calc. Creatinine Clearance 0 mL/min (70-130); Calcium 9.2 mg/dL (7.8-10.44); Carbon Dioxide 24 mmol/L (22-29); Chloride 102 mmol/L (98-107); Estimated GFR-MDRD 76; Glucose 194 mg/dL (70-105); Potassium 4.9 mmol/L (3.5-5.1); Sodium 134 mmol/L (136-145)
[2019-05-31 14:46] LABS: BHCG - Serum Negative (NEGATIVE); Pregs Control Bar Appear? YES (CONTROL BAR)
[2019-05-31 14:47] LABS: Pregs Control Background? CLEAR/WHITE (CLR/WHITE)
--- NOTE | 2019-05-31 16:57 | EKG ---
Test Reason : Blood Pressure : / mmHG Vent. Rate : 070 BPM Atrial Rate : 070 BPM P-R Int : 184 ms QRS Dur : 080 ms QT Int : 394 ms P-R-T Axes : 065 031 052 degrees QTc Int : 425 ms Normal sinus rhythm Normal ECG When compared with ECG of 13-FEB-2018 11:52, T wave inversion no longer evident in Inferior leads QT has shortened Confirmed by DR. Getachew ESCOBEDO ([id number]) on 05/31/2019 4:57:20 PM Referred By: ELIZABETH Confirmed By:DR. Getachew ESCOBEDO
== END 2019-05-31 11:56 | disposition home or self-care (01) ==
LOC: LABBT 11:55
PROVIDERS: ATTEND Urology
DX: Z01.818 Encounter for other preprocedural examination (principal); N20.2 Calculus of kidney with calculus of ureter
CPT/HCPCS: 80048; 81001; 84703; 85027; 85610; 85730; 87086; 93005; 93010

== ENCOUNTER 2019-06-07 05:38 | Day surgery (SDC) | payer OTHER ==
[2019-05-31 12:01] VITALS: BMI 56.2
[2019-06-07] MEDS ORDERED: Levofloxacin 500 mg/D5W 100 ml Premix Bag ONE (06:31)
[2019-06-07] MEDS ORDERED: Iothalamate Meglumine 60% 50 ML VIAL FS ONE (07:22)
[2019-06-07] MEDS ORDERED: B & O ONE (07:22)
[2019-06-07] MEDS ORDERED: Midazolam HCl 2 mg/2 ml Vial ONE ×2 (07:26→07:47)
[2019-06-07] MEDS ORDERED: cefTRIAXone\\ROCEPHIN 2 GM VIAL ONE (07:31)
[2019-06-07] MEDS ORDERED: Sodium Chloride 0.9% 100 ML ONE (07:32)
[2019-06-07] MEDS ORDERED: Fentanyl 100 MCG/2 ML VIAL ONE ×3 (07:47→10:25)
[2019-06-07] MEDS ORDERED: Rocuronium Bromide 10 MG/ML (10ML VIAL) ONE (09:46)
[2019-06-07] MEDS ORDERED: PROPOFOL 200 MG/20 ML VIAL ONE (09:46)
[2019-06-07] MEDS ORDERED: Lidocaine 1% PF 5 ML VIAL ONE (09:46)
[2019-06-07] MEDS ORDERED: Ondansetron PF 4 MG/2 ML Vial ONE (10:31)
--- NOTE | 2019-06-07 10:37 | RAD ---
Exam: Intraprocedure fluoroscopy HISTORY: Stent placement. FINDINGS: Single fluoroscopic view demonstrates a right-sided ureteral stent which appears to be appr opriately positioned. IMPRESSION: Intraprocedure fluoroscopy as above
[2019-06-07] MEDS ORDERED: Morphine 4 MG/ML VIAL ONE (10:40)
[2019-06-07] MEDS ORDERED: Promethazine 25 MG TAB ONE (11:17)
--- NOTE | 2019-06-07 12:18 | OP ---
DATE OF PROCEDURE: 06/07/2019 SERVICE: Urology. PREOPERATIVE DIAGNOSIS: Right renal stones. POSTOPERATIVE DIAGNOSIS: Right renal stones. PROCEDURES PERFORMED: 1. Right ureteroscopy. 2. Laser lithotripsy. 3. Basket extraction of stones. 4. Placement of a 6 x 26 double-J stent with no string. INDICATIONS FOR PROCEDURE: Ms. Okeefe is a 38-year-old white female with history of right-sided stones and pain. One of the stones is near the UPJ and maybe intermittently obstructing. As such, we have elected to proceed forward with ureteroscopy and removal of the stones. Risks and benefits of the surgery were fully discussed and she has agreed to proceed forward. DESCRIPTION OF PROCEDURE: After identification of armband and verification of consent, the patient was brought back to the operating room, where she underwent general anesthesia with endotracheal intubation. She was placed in dorsal lithotomy position and prepped and draped in the usual sterile fashion. After appropriate time-out, a lubricated 22-Angolan rigid cystoscope was introduced per urethra into the bladder. Attention was turned to the right ureteral orifice, which was cannulated with a 0.038 Sensor wire up to the level of renal pelvis. The cystoscope was then removed and a dual-lumen catheter was advanced over the Sensor wire up to the level of proximal ureter. An Amplatz Super Stiff wire was then placed through the second lumen up to the level of renal pelvis. The dual-lumen was then removed. An 11/13 x 36-cm ureteral access sheath was advanced over the Super Stiff wire up to the level of proximal ureter and then the inner cannula and the super Stiff wire were removed, leaving the outer sheath and Sensor wire in place as a safety wire. A flexible digital ureteroscope was then passed up into the renal pelvis, where the stones were encountered. Using a 200 micron ball-tip laser fiber, the stones were fragmented into smaller pieces. Upon completion, all the stone fragments were small enough to be basketed out with 1.9-Angolan Marco basket. The stone fragments were all sent off for routine pathologic evaluation. Upon completion, there were no stone fragments remaining that were over approximately 1 mm in size. There was a significant amount of stone debris. This should pass out without any problems. Pull-back ureteroscopy was employed and there were no additional stones found in the ureter. The cystoscope was then back-loaded over the Sensor wire back into the bladder and a 6 x 26 double-J stent was advanced over the wire with no string up to the level of renal pelvis, where the wire was removed, leaving a partial curl in the kidney and a good curl in the bladder. The bladder was emptied and the cystoscope removed. A B and O suppository was placed in the patient's rectum. The patient was then awakened, taken to PACU for recovery in stable condition. COMPLICATIONS: None. ESTIMATED BLOOD LOSS: Minimal. RETAINED TUBES AND DRAINS: A 6 x 26 double-J stent on the right. SPECIMENS: Stone for stone analysis. DISPOSITION: The patient will be discharged home and follow up with me in approximately 1 week for cystoscopy and stent removal. Job ID: [id number]
[2019-06-07] MEDS ORDERED: HYDROcodone/Acetaminophen 5/325 mg Tablet ONE (12:45)
== END 2019-06-07 13:20 | disposition home or self-care (01) ==
LOC: SDC 05:38
PROVIDERS: ATTEND Urology
PROC: 0TF38ZZ Fragmentation in Right Kidney Pelvis, Via Natural or Artificial Opening Endoscopic (ICD-10-PCS; principal; 2019-06-07)
PROC: 0T768DZ Dilation of Right Ureter with Intraluminal Device, Via Natural or Artificial Opening Endoscopic (ICD-10-PCS; principal; 2019-06-07)
DX: N20.0 Calculus of kidney (principal); I10 Essential (primary) hypertension; E11.9 Type 2 diabetes mellitus without complications; J44.9 Chronic obstructive pulmonary disease, unspecified; Z79.4 Long term (current) use of insulin; Z79.899 Other long term (current) drug therapy; Z88.0 Allergy status to penicillin; Z88.1 Allergy status to other antibiotic agents; Z88.5 Allergy status to narcotic agent; Z88.8 Allergy status to other drugs, medicaments and biological substances
CPT/HCPCS: 36416; 76000; 82365; 88300; C1769; J0696; J1956; J2001; J2250; J2270; J2405; J2704; J3010; J3490; Q0169

== ENCOUNTER 2019-06-12 12:34 | Emergency (ER) | payer OTHER ==
[2019-06-12 13:20] LABS: Leukocyte Trace (Negative); Protein, Urine (Dipstick) > or equal to 300 mg/dL (Neg-Trace)
[2019-06-12] MEDS ORDERED: Ondansetron PF 4 MG/2 ML Vial ONE (13:23)
[2019-06-12 13:25] LABS: Bilirubin Unable to Interpret (Negative); Clarity Cloudy (Clear); Glucose, Urine (Dipstick) Unable to Interpret mg/dL (Negative); Nitrite Unable to Interpret (Negative); Urobilinogen UNABLE TO INTERPRET mg/dL (Less than 2)
[2019-06-12] MEDS ORDERED: Fentanyl 100 MCG/2 ML VIAL ONE ×3 (13:25→15:21)
[2019-06-12 13:29] LABS: Blood, Urine Large (Negative)
[2019-06-12 13:34] LABS: RBC/HPF Greater than 50 HPF (0-3)
[2019-06-12 13:35] LABS: Bacteria/HPF Rare-Few HPF (None Seen); Squamous Epithelial 0-3 HPF (0-3)
[2019-06-12 13:48] LABS: #Eosinphils 0.1 thou/uL (0.0-0.7); #Lymphocytes 2.2 thou/uL (1.20-3.40); #Monocytes 0.4 thou/uL (0.11-0.59); #Neutrophils 6.2 thou/uL (1.40-6.50); %Basophils 0.5 % (0.0-1.0); %Eosinophils 1.3 % (0.0-10.0); %Lymphocytes 24.9 % (21.0-51.0); %Monocytes 4.1 % (0.0-10.0); %Neutrophils 69.3 % (42.0-75.0); Hemoglobin 13.4 g/dL (12.0-16.0); Mean Corpuscular Hemoglobin 29.6 pg (27.0-31.0); Mean Corpuscular Volume 87.1 fL (78.0-98.0); Mean Platelet Volume 8.5 fL (7.4-10.4); Platelet Count 197 thou/uL (130-400); RBC Distribution Width 11.4 % (11.5-14.5); Red Blood Cell (RBC) Count 4.52 mill/uL (4.20-5.40); White Blood Cell (WBC) Count 8.9 thou/uL (4.8-10.8)
[2019-06-12 14:09] LABS: ALT (SGPT) 35 U/L (8-55); AST (SGOT) 33 U/L (5-34); Albumin 4.3 g/dL (3.5-5.0); Alkaline Phosphatase 86 U/L (40-110); Anion Gap 12 mmol/L (10-20); BUN (Urea Nitrogen) 19 mg/dL (7.0-18.7); Bilirubin, Total 0.5 mg/dL (0.2-1.2); Calc. Creatinine Clearance 0 mL/min (70-130); Carbon Dioxide 26 mmol/L (22-29); Chloride 102 mmol/L (98-107); Estimated GFR-MDRD 69; Globulin 3.4 g/dL (2.4-3.5); Glucose 232 mg/dL (70-105); Potassium 4.3 mmol/L (3.5-5.1); Protein, Total 7.7 g/dL (6.0-8.3); Sodium 136 mmol/L (136-145)
[2019-06-12] MEDS ORDERED: HYDROcodone/Acetaminophen 10/325 mg Tablet ONE (15:57)
== END 2019-06-12 16:43 | disposition home or self-care (01) ==
LOC: ERS 12:34
DX: G89.18 Other acute postprocedural pain (principal); R10.9 Unspecified abdominal pain; Z76.0 Encounter for issue of repeat prescription; R11.0 Nausea; E66.9 Obesity, unspecified; E11.9 Type 2 diabetes mellitus without complications; J44.9 Chronic obstructive pulmonary disease, unspecified; F41.9 Anxiety disorder, unspecified; F43.10 Post-traumatic stress disorder, unspecified; Z87.891 Personal history of nicotine dependence; Z79.899 Other long term (current) drug therapy; Z79.4 Long term (current) use of insulin
CPT/HCPCS: 36415; 80053; 81003; 81015; 85025; 87086; 96361; 96374; 96375; 96376; J2405; J3010

== ENCOUNTER 2019-06-15 15:21 | Inpatient (IN) | payer OTHER, SELFPAY ==
[2019-06-15] MEDS ORDERED: Morphine 4 MG/ML VIAL ONE ×3 (15:50→19:20)
[2019-06-15] MEDS ORDERED: Ketorolac Tromethamine 30 MG/ML VIAL ONE (17:23)
[2019-06-15] MEDS ORDERED: Ondansetron PF 4 MG/2 ML Vial ONE (17:24)
[2019-06-15 17:27] LABS: #Eosinphils 0.1 thou/uL (0.0-0.7); #Lymphocytes 2.2 thou/uL (1.20-3.40); #Monocytes 0.2 thou/uL (0.11-0.59); #Neutrophils 2.6 thou/uL (1.40-6.50); %Basophils 0.8 % (0.0-1.0); %Eosinophils 1.8 % (0.0-10.0); %Lymphocytes 42.5 % (21.0-51.0); %Monocytes 4.4 % (0.0-10.0); %Neutrophils 50.5 % (42.0-75.0); Hemoglobin 13.1 g/dL (12.0-16.0); Mean Corpuscular HGB CONC 32.7 g/dL (32.0-36.0); Mean Corpuscular Hemoglobin 28.7 pg (27.0-31.0); Mean Corpuscular Volume 87.6 fL (78.0-98.0); Mean Platelet Volume 8.6 fL (7.4-10.4); Platelet Count 205 thou/uL (130-400); RBC Distribution Width 11.4 % (11.5-14.5); Red Blood Cell (RBC) Count 4.58 mill/uL (4.20-5.40); White Blood Cell (WBC) Count 5.2 thou/uL (4.8-10.8)
[2019-06-15 17:47] LABS: Anion Gap 14 mmol/L (10-20); BUN (Urea Nitrogen) 12 mg/dL (7.0-18.7); Calc. Creatinine Clearance 0 mL/min (70-130); Calcium 9.1 mg/dL (7.8-10.44); Carbon Dioxide 22 mmol/L (22-29); Chloride 106 mmol/L (98-107); Estimated GFR-MDRD 84; Glucose 187 mg/dL (70-105); Potassium 4.3 mmol/L (3.5-5.1); Sodium 138 mmol/L (136-145)
[2019-06-15 18:07] LABS: Bilirubin Negative (Negative); Blood, Urine 3+ (Negative); Clarity Turbid (Clear); Glucose, Urine (Dipstick) 30 mg/dL (Negative); Leukocyte 25 Leu/uL (Negative); Nitrite Negative (Negative); Protein, Urine (Dipstick) 100 mg/dL (Neg-Trace); RBC/HPF Greater than 50 HPF (0-3); Squamous Epithelial 0-3 HPF (0-3); Urobilinogen Normal mg/dL (Less than 2); WBC/HPF 21-50 HPF (0-3)
[2019-06-15 18:11] LABS: Bacteria/HPF 1+ HPF (None Seen)
[2019-06-15 18:13] LABS: Pregnancy Test - Urine (BHCG) Negative (Negative); Pregu Control Background? CLEAR/WHITE (CLR/WHITE); Pregu Control Bar Appear? YES (CONTROL BAR); Specific Gravity 1.029 (1.002-1.036)
--- NOTE | 2019-06-15 18:14 | ULT ---
RENAL ULTRASOUND 06/15/19 PROVIDED CLINICAL HISTORY: Right flank pain. FINDINGS: Right kidney measures about 12.7 x 6.2 x 6.2 cm. There is moderate right hydronephrosis. There is an echogenic focus involving the right kidney that may reflect a calculus. This measures approximately 1 .2 cm. The left kidney measures 11.8 x 6.3 x 5.9 cm and demonstrates no evidence for hydronephrosis or mass. Echogenic focus at the inferior aspect of the left kidney may reflect calculus, measures about 8 mm. The urinary bladder is decompressed and not well evaluated. IMPRESSION: Right hydronephrosis. POS: [facility]
[2019-06-15] MEDS ORDERED: cefTRIAXone\\ROCEPHIN 1 GM VIAL ONE (19:19)
[2019-06-15 21:55] VITALS: BMI 50.3
[2019-06-15] MEDS ORDERED: Ondansetron PF 4 MG/2 ML Vial IVP PRN (22:02)
[2019-06-15] MEDS ORDERED: Ondansetron ODT 4 MG TAB SL PRN (22:02)
[2019-06-15] MEDS ORDERED: Morphine 10 MG/ML VIAL SLOW IVP PRN (22:02)
[2019-06-15] MEDS ORDERED: Morphine 4 MG/ML VIAL SLOW IVP SCH (22:15)
[2019-06-15] MEDS ORDERED: Lactated Ringer's 1,000 ML IV SCH (22:15)
[2019-06-15] MEDS ORDERED: Naloxone HCl 0.4 mg/ml Vial IV PRN (23:13)
[2019-06-15] MEDS ORDERED: diphenhydrAMINE 50 MG/ML VIAL IVP PRN (23:13)
[2019-06-15] MEDS ORDERED: diphenhydrAMINE 50 MG/ML VIAL IM PRN (23:13)
[2019-06-15] MEDS ORDERED: diphenhydrAMINE 25 MG CAP PO PRN (23:13)
[2019-06-15] MEDS ORDERED: Morphine CADD 1 MG/ML CADD IVPB PRN (23:13)
[2019-06-15] MEDS ORDERED: Communication Order-Pharmacy FS SCH (23:15)
[2019-06-15] MEDS ORDERED: cloNIDine 0.1 MG TAB PO PRN (23:18)
[2019-06-15] MEDS ORDERED: hydrALAZINE 20 MG/ML VIAL SLOW IVP PRN (23:18)
--- NOTE | 2019-06-15 23:20 | PDOC.HHP ---
Hospitalist HPI - History of Present Illness R flank pain History of Present Illness: Patient is a 38 year old female with PMH hearing impairment (reads lips), obstructive lung disease, kidney stone, T2DM who presents for R flank pain, patient had a urinary stent placed for kidney stone which was removed yesterday ever since has developed severe flank pain not responding to large doses pain meds, is currently 8/10 and has had over 20 mg morphine this evening, I discussed with ED Dr. Fritz who discussed case with DR Uribe of urology who will follow patient with us. In ED, labs suggestive of urinary infection, CVA tenderness noted, cultures ordered, patient to be admitted for intractable pain and likely pyelonephritis. Renal US showed R hydronephrosis, also patient on menstrual period now causing bleeding making it difficult to distill vs hematurria. ED Course: NovoLIN R CARTRIDGE (ML) : Strength - 100 unit/mL : INJECTION Patient Dose: Unknown.SLIDING SCALE. Flexeril TABLET : Strength - 10 mg : ORAL Patient Dose: 1 tab(s) Oral every 8 hours PRN. Lidoderm ADHESIVE PATCH, MEDICATED : Strength - 5 % (700 mg/patch) : TOPICAL Patient Dose: 1-2 Patch TOPICAL once a day PRN. acetaminophen-codeine TABLET : Strength - 300 mg-30 mg : ORAL Patient Dose: 1 tab(s) Oral every 6 hours PRN. Zofran ODT TABLET,DISINTEGRATING : Strength - 8 mg : ORAL Patient Dose: 1 tab(s) Oral every 6 hours PRN. Kinsman TABLET : Strength - 5 mg-325 mg : ORAL Patient Dose: 1-2 tab(s) Oral every 4 hours prn. Zofran oral TABLET : Strength - 4 mg : ORAL Patient Dose: 1-2 tab(s) Oral every 6 hours PRN. VITAL SIGNS TueJun 15, 2019 15:22 MARGARET Veronica, Denise BP: 135/68 Pulse: 97 Resp: 20 Temp: 98.1 (Oral) Pain: 10 O2 sat: 96 on (Room Air) Time: 06/15/2019 15:22. Hospitalist ROS - Review of Systems Constitutional: reports: chills, weakness Eyes: denies: pain, vision change, conjunctivae inflammation, eyelid inflammation, redness, other ENT: denies: ear pain, ear discharge, nose pain, nose discharge, nose congestion , mouth pain, mouth swelling, throat pain, throat swelling, other Respiratory: denies: cough, dry, shortness of breath, hemoptysis, SOB with excertion, pleuritic pain, sputum, wheezing, other Cardiovascular: denies: chest pain, palpitations, orthopnea, paroxysmal noc. dyspnea, edema, light headedness, other Gastrointestinal: denies: nausea, vomiting, abdominal pain, diarrhea, constipation, melena, hematochezia, other Genitourinary: reports: hematuria (on menses), other (R flank pain) Musculoskeletal: reports: back pain. denies: neck pain, shoulder pain Skin: denies: rash, lesions Neurological: denies: weakness, numbness, incoordination, change in speech All other systems reviewed; all pertinent +/- noted in HPI/Subj - Medication Medications: Active Medications Generic Name Dose Route Start Last Admin Trade Name Freq PRN Reason Stop Dose Admin Morphine Sulfate 4 mg 06/15/19 22:15 06/15/19 22:15 Morphine SLOW IVP 06/16/19 00:15 4 mg NOW ON LICENSE OF [facility] Administration Hospitalist History - Past Medical History Other Medical History: Past medical history includes history of obesity, Notes: Cervical cancer, Past medical history includes history of diabetes, Type II, Past medical history includes pulmonary disease, asthma, chronic obstructive pulmonary disease, Past medical history includes renal disease, kidney stone(s), HEARING IMPAIRED - CONGENITAL. renal stent. - Past Surgical History Other Surgical History: Liver biopsy, cervical cancer removal, Surgical history of cholecystectomy, Surgical history of tonsillectomy. BILATERAL KIDNEY SURGERY - LITHOTRIPSY. - Family History Family History: reports: no pertinent history - Social History Other Social History: Patient denies alcohol use, Patient denies drug use, Patient is a former tobacco user. - Exam General Appearance: NAD, awake alert Eye: PERRL, anicteric sclera ENT: normocephalic atraumatic Neck: supple, symmetric, no JVD, no thyromegaly, no lymphadenopathy, no carotid bruit Heart: RRR, no murmur, no gallops, no rubs, normal peripheral pulses Respiratory: CTAB, no wheezes, no rales, no ronchi, normal chest expansion, no tachypnea, normal percussion Gastrointestinal: soft, non-tender, non-distended, normal bowel sounds, no palpable masses, no hepatomegaly, no splenomegaly, no bruit Extremities: no cyanosis, no clubbing, no edema Skin: normal turgor, no lesions, no rashes Neurological: cranial nerve grossly intact, normal sensation to touch, no weakness, no focal deficits, no new deficit Musculoskeletal: normal tone, normal strength, no muscle wasting Musculoskeletal - other findings: +right CVA tenderness Psychiatric: normal affect, normal behavior, A&O x 3 Hospitalist Results - Labs Result Diagrams: 06/15/19 17:10 06/15/19 17:10 Lab results: WBC 5.2 thou/uL (4.8-10.8) 06/15/19 17:10 Hgb 13.1 g/dL (12.0-16.0) 06/15/19 17:10 Hct 40.1 % (36.0-47.0) 06/15/19 17:10 MCV 87.6 fL (78.0-98.0) 06/15/19 17:10 Plt Count 205 thou/uL (130-400) 06/15/19 17:10 Neutrophils % 50.5 % (42.0-75.0) 06/15/19 17:10 Sodium 138 mmol/L (136-145) 06/15/19 17:10 Potassium 4.3 mmol/L (3.5-5.1) 06/15/19 17:10 Chloride 106 mmol/L (98-107) 06/15/19 17:10 Carbon Dioxide 22 mmol/L (22-29) 06/15/19 17:10 BUN 12 mg/dL (7.0-18.7) 06/15/19 17:10 Creatinine 0.77 mg/dL (0.6-1.1) 06/15/19 17:10 Glucose 187 mg/dL (70-105) H 06/15/19 17:10 Calcium 9.1 mg/dL (7.8-10.44) 06/15/19 17:10 Urine Ketones Trace mg/dL (Negative) A 06/15/19 17:30 Urine Blood 3+ (Negative) A 06/15/19 17:30 Urine Nitrite Negative (Negative) 06/15/19 17:30 Ur Leukocyte Esterase 25 Katarzyna/uL (Negative) 06/15/19 17:30 Urine RBC Greater than 50 HPF (0-3) A 06/15/19 17:30 Urine WBC 21-50 HPF (0-3) A 06/15/19 17:30 Ur Squamous Epith Cells 0-3 HPF (0-3) 06/15/19 17:30 Urine Bacteria 1+ HPF (None Seen) A 06/15/19 17:30 Additional comment: reviewed labs and renal us and vitals in ED Hospitalist H&P A/P - Plan Plan: Patient is a 38 year old female with PMH hearing impairment (reads lips), obstructive lung disease, kidney stone, T2DM who presents for R flank pain. 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
[2019-06-15] MEDS ORDERED: Morphine Sulfate 100 MG in Dextrose 5% in Water 98 ML IV SCH (23:26)
[2019-06-15] MEDS ORDERED: Bisacodyl 10 MG SUPP PR PRN (23:32)
[2019-06-15] MEDS ORDERED: HYDROcodone/Acetaminophen 5/325 mg Tablet PO PRN (23:32)
[2019-06-15] MEDS ORDERED: Acetaminophen 325 MG TAB PO PRN (23:32)
[2019-06-16] MEDS: Morphine Sulfate 100 MG in Dextrose 5% in Water 98 ML IV PRN ×2 (00:02→21:02)
[2019-06-16] MEDS: Sodium Chloride 0.9% 1,000 ML IV SCH ×2 (00:02→08:17)
[2019-06-16] MEDS ORDERED: Dextrose 5% in Water 1,000 ML IV PRN (00:12)
[2019-06-16] MEDS ORDERED: Dextrose 50% Abboject 50 ML SYRINGE SLOW IVP PRN (00:12)
[2019-06-16] MEDS ORDERED: Oxybutynin 5 MG TAB PO SCH (00:15)
[2019-06-16] MEDS ORDERED: Phenazopyridine HCl 97.5 MG TABLET PO SCH (00:30)
[2019-06-16] MEDS ORDERED: traZODone HCl 50 MG TAB PO SCH (00:30)
[2019-06-16 04:59] LABS: #Eosinphils 0.1 thou/uL (0.0-0.7); #Lymphocytes 2.7 thou/uL (1.20-3.40); #Monocytes 0.3 thou/uL (0.11-0.59); #Neutrophils 2.3 thou/uL (1.40-6.50); %Basophils 0.6 % (0.0-1.0); %Eosinophils 1.5 % (0.0-10.0); %Lymphocytes 49.9 % (21.0-51.0); %Monocytes 4.6 % (0.0-10.0); %Neutrophils 43.4 % (42.0-75.0); Hemoglobin 11.7 g/dL (12.0-16.0); Mean Corpuscular HGB CONC 31.9 g/dL (32.0-36.0); Mean Corpuscular Hemoglobin 29.6 pg (27.0-31.0); Mean Corpuscular Volume 92.6 fL (78.0-98.0); Mean Platelet Volume 8.7 fL (7.4-10.4); Platelet Count 189 thou/uL (130-400); RBC Distribution Width 11.6 % (11.5-14.5); Red Blood Cell (RBC) Count 3.96 mill/uL (4.20-5.40); White Blood Cell (WBC) Count 5.4 thou/uL (4.8-10.8)
[2019-06-16 05:02] LABS: Anion Gap 13 mmol/L (10-20); BUN (Urea Nitrogen) 13 mg/dL (7.0-18.7); Calc. Creatinine Clearance 217 mL/min (70-130); Calcium 8.3 mg/dL (7.8-10.44); Carbon Dioxide 19 mmol/L (22-29); Chloride 110 mmol/L (98-107); Estimated GFR-MDRD 79; Glucose 219 mg/dL (70-105); Magnesium 1.5 mg/dL (1.6-2.6); Potassium 4.3 mmol/L (3.5-5.1); Sodium 138 mmol/L (136-145)
[2019-06-16] MEDS: Ondansetron PF 4 MG/2 ML Vial IVP PRN (05:36)
[2019-06-16] MEDS: Promethazine HCl 12.5 MG in Sodium Chloride 0.9% 50 ML IVPB PRN (08:17)
[2019-06-16] MEDS: Oxybutynin 5 MG TAB PO SCH ×3 (08:23→20:18)
[2019-06-16] MEDS: Alogliptin 25 MG TAB PO SCH (08:23)
[2019-06-16] MEDS: Polyethylene Glycol 3350 17 GM Packet PO SCH (08:24)
[2019-06-16] MEDS: Senokot S 8.6-50 MG TAB PO SCH ×2 (08:24→20:17)
[2019-06-16] MEDS: Tamsulosin HCl 0.4 MG CAP PO SCH (08:24)
[2019-06-16] MEDS: Phenazopyridine HCl 97.5 MG TABLET PO SCH ×3 (08:24→20:17)
[2019-06-16] MEDS ORDERED: Magnesium 2 GM/50 ML 2 GM in Premix Bag 1 BAG IVPB SCH (10:00)
--- NOTE | 2019-06-16 10:45 | CT ---
CT of abdomen and pelvis: 06/16/2019 COMPARISON: 04/11/2019 HISTORY: Right flank pain, urinary retention, history of kidney stones TECHNIQUE: Axial CT imaging at 5 mm intervals from lung bases through pubic symphysis without contras t. Coronal reformatted imaging obtained. FINDINGS: Lack of contrast media limits assessment of the viscera, bowel, vascular structures, and fo r lymphadenopathy. Imaged lung bases unremarkable with no free intraperitoneal air or fluid seen. Cholecystectomy clips are present. Diffuse hepatic hypodensity noted, evidence of steatosis. Hepatomegaly noted, with the liver measuring 23.6 cm in craniocaudal dimension, stable. Stable splenomegaly-spleen measuring 14.7 cm in AP dimension. Pancreas and adrenal glands appear unremarkable. Numerous subcentimeter nonobstructing stones are noted in the lower pole of left kidney. No evidence for obstructive uropathy on the left. Linear nonobstructing lower pole right renal stone noted measuring 8 mm in transverse dimension. Mild prominence of the upper pole right renal calyx with no evidence for discrete right-sided hydronephrosis. There is mild stranding of the fat adjacent to the right ureter. No discrete calcific ation is seen along the course of the right ureter. Limited assessment of the bowel demonstrates no evidence for inflammatory change or obstruction. Appe ndix is unremarkable. Osseous structures demonstrate no acute findings. Bilateral L5 pars defects are noted. Of note, the volume of renal stone disease on the right is significantly decreased when compared to t he most recent prior examination. IMPRESSION: Bilateral nonobstructing intrarenal calculi. Stone burden on the right has decreased sign ificantly when compared to prior imaging. No evidence for obstructive uropathy noted on this exam. Mild stranding of the fat adjacent to the right ureter may signify recently passed stone or inflammat ory change. Correlation with urinalysis suggested. Stable hepatosplenomegaly with probable hepatic steatosis.
--- NOTE | 2019-06-16 14:32 | PDOC.HOSPP ---
- Subjective Encounter Date: 06/16/19 Encounter Time: 14:31 Subjective: The patient still has a lot of right sided flank pain which started after her procedure. She says she had it all morning and vomited because of it. Last bowel movement was yesterday. 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 It does help some. The patient is requesting a diet per nursing - Objective Vital Signs & Weight: Vital Signs (12 hours) Temp Pulse Resp BP Pulse Ox 06/16/19 12:00 98.6 F 78 18 135/80 94 L 06/16/19 08:02 97.9 F 75 18 130/86 97 06/16/19 03:32 98.0 F 74 16 137/80 95 Weight Weight 321 lb 5 oz I&O: 06/15/19 06/16/19 06/17/19 06:59 06:59 06:59 Intake Total 1460 Balance 1460 Result Diagrams: 06/16/19 04:27 06/16/19 04:27 Additional Labs: Accuchecks 06/16/19 06/16/19 11:18 06:00 POC Glucose 183 H 206 H Hospitalist ROS - Review of Systems Constitutional: denies: fever, chills - Medication Medications: Active Medications Generic Name Dose Route Start Last Admin Trade Name Freq PRN Reason Stop Dose Admin Alogliptin Benzoate 25 mg 06/16/19 09:00 06/16/19 08:23 Alogliptin PO Not Given DAILY RY Sodium Chloride 1,000 mls @ 120 mls/hr 06/15/19 23:30 06/16/19 08:17 Normal Saline 0.9% IV 06/16/19 16:09 1,000 mls .[id number] RY Administration Promethazine HCl 12.5 mg/ 50.5 mls @ 202 mls/hr 06/15/19 23:18 06/16/19 08:17 Sodium Chloride IVPB 50.5 mls Q6H PRN Administration Nausea/vomiting, use second Morphine Sulfate 100 mg/ 100 mls @ 0 mls/hr 06/15/19 23:30 06/16/19 00:02 Dextrose/Water IV 100 mls INF PRN Administration Pain Ondansetron HCl 4 mg 06/15/19 23:18 06/16/19 05:36 Zofran IVP 4 mg Q6H PRN Administration Nausea/Vomiting, use 1st Oxybutynin Chloride 5 mg 06/16/19 09:00 06/16/19 08:23 Ditropan PO Not Given TID [facility] Pantoprazole Sodium 40 mg 06/16/19 09:00 06/16/19 08:23 Protonix PO Not Given DAILY [facility] Phenazopyridine HCl 97.5 mg 06/16/19 09:00 06/16/19 08:24 Azo Standard PO Not Given TID [facility] Polyethylene Glycol 17 gm 06/16/19 09:00 06/16/19 08:24 Miralax PO Not Given DAILY [facility] Senna/Docusate Sodium 1 tab 06/16/19 09:00 06/16/19 08:24 Senokot S PO Not Given BID [facility] Tamsulosin HCl 0.4 mg 06/16/19 09:00 06/16/19 08:24 Flomax PO Not Given DAILY RY - Exam General Appearance: NAD, awake alert Eye: PERRL, anicteric sclera ENT: normocephalic atraumatic, no oropharyngeal lesions ENT - other findings: hearing impaired Neck: supple, symmetric, no JVD, no thyromegaly Heart: RRR, no murmur, no gallops, no rubs Respiratory: CTAB, no wheezes, no rales, no ronchi Gastrointestinal: soft, no guarding, no rigidity Gastrointestinal - other findings: right sided flank tenderness. Mild RUQ tenderness Extremities: no cyanosis, no clubbing, no edema Hosp A/P - Plan CT abdomen: bilateral nonobstructing intrarenal calculi. Stone burden on the right has decreased significantly. Stable hepatosplenomegaly with probable hepatic steatosis. Renal ultrasound: right hydronephrosis This is 38 year old female who presented with COPD, kidney stone, T2DM who presented with right flank pain after having a stent removed. Kidney stone s/p stent removal - right hydronephrosis appears to have resolved on CT abdomen with stone burden decreased. UA showed turbid urine, urine culture is pending - on IV ceftriaxone. 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 Urology is following Hypomagnesemia - Mg 1.5, give 2 grams of IV mag Anemia - Hb 11, probably dilutional - recheck tomorrow Fatty liver/Hepatosplenomegaly - outpatient follow up Dispo: d/c when weaned off WAFER POLISHER and tolerating diet Code status: full code
[2019-06-16] MEDS ORDERED: Ketorolac Tromethamine 30 MG/ML VIAL IVP SCH (14:45)
[2019-06-16] MEDS ORDERED: Alogliptin 25 MG TAB PO SCH (17:15)
[2019-06-16] MEDS: Insulin Glargine 40 UNITS in Pre-Filled Syringe 1 EACH SC SCH (20:17)
[2019-06-16] MEDS: traZODone HCl 50 MG TAB PO SCH (20:17)
[2019-06-16] MEDS ORDERED: Non-Formulary Item 1 EACH (Insulin Detemir 100 Units/Ml [Levemir] 40 UNIT) SQ SCH (21:00)
[2019-06-16] MEDS: cefTRIAXone\\ROCEPHIN 1 GM in Sodium Chloride 0.9% 100 ML IVPB SCH (21:04)
--- NOTE | 2019-06-16 21:26 | CON ---
DATE OF CONSULTATION: 06/16/2019 REQUESTING PHYSICIAN: Radha Jaime MD REASON FOR CONSULTATION: Right flank pain, and right hydronephrosis. HISTORY OF PRESENT ILLNESS: Ms. Okeefe is a pleasant 38-year-old female, patient of Dr. Stephen Ibarra. She underwent a right ureteroscopy with laser lithotripsy and basket extraction of right ureteropelvic junction stone on 06/07/2019. The patient tolerated that procedure well. She had a stent in place and this was removed in the office on 06/14/2019. After the stent was removed 2 days ago, the patient developed increasing right flank pain. Her pain progressed throughout the night into yesterday. She contacted Dr. Ibarra's office. They were to schedule her for renal ultrasound. However, it was late in the day and she was in severe pain, so they sent her to the emergency department. The patient required very high doses of IV analgesics to get her comfortable last night. Renal ultrasound was performed, which demonstrated right hydronephrosis. The patient was admitted and Urology was consulted. Overall, her pain has been controlled, although currently is at a level 8. She is on a morphine UROLOGIST MD. She has not noticed any dysuria. No fevers. A CT scan was obtained this morning at my request and this demonstrated no significant ureteral stone. There was no hydronephrosis. There was very slight inflammatory changes around the right proximal ureter and kidney. There appears to be some sandlike debris in the right kidney, but again no hydronephrosis or ureteral stone. The history was obtained with the assistance of Kevon Loaiza to provide sign language translation as the patient is near completely deaf. REVIEW OF SYSTEMS: Full 12-point review of systems was performed and is negative other than that mentioned in HPI. PAST MEDICAL HISTORY: Obesity, cervical cancer, type 2 diabetes, pulmonary disease, asthma, COPD, urolithiasis. PAST SURGICAL HISTORY: Liver biopsy, removal of cervical cancer, cholecystectomy, tonsillectomy, multiple lithotripsies, both shockwave lithotripsy and laser lithotripsies. FAMILY HISTORY: Noncontributory. SOCIAL HISTORY: She lives at home. She is a former smoker. No alcohol or drugs. ALLERGIES: AMLODIPINE, AMOXICILLIN, BUTORPHANOL, THESE WERE REVIEWED. PHYSICAL EXAMINATION: VITAL SIGNS: Temperature 98.6, heart rate 78, respirations 18, blood pressure 135/80, oxygen saturation 97% on room air. GENERAL: She is awake and alert, in no apparent distress. CARDIOVASCULAR: Regular rate and rhythm. PULMONARY: Breathing unlabored. ABDOMEN: Obese, soft, nontender/nondistended. No masses or organomegaly. No suprapubic tenderness to palpation. No CVA tenderness. EXTREMITIES: Warm, well perfused. No edema. NEUROLOGIC: No focal deficits. RADIOLOGY DATA: Renal ultrasound on 06/15/[address] scan on 06/16/2019 demonstrates no obstructive uropathy. There is no ureteral stone. No hydronephrosis. There is mild inflammatory stranding around the right ureter. LABORATORY DATA: White blood cell count 5.4, hemoglobin 11.7, hematocrit 36.7, platelets 189. Sodium 138, potassium 4.3, chloride 110, bicarb 19, BUN 13, creatinine 0.81. ASSESSMENT: A 38-year-old female with recurrent urolithiasis, status post right ureteroscopy with laser lithotripsy and right ureteral stent placement and now ureteral stent removal, now with flank pain and ureteral spasms. PLAN: The etiology of the patient's pain is likely secondary to ureteral spasms after her stent was removed. She initially had hydronephrosis on her ultrasound. This has resolved. On followup CT, there was no ureteral stone present. She has a small amount of sandlike debris in the lower pole of the right kidney, but otherwise there is no evidence of obstructive uropathy. Her pain should continue to improve. Recommend limiting narcotics and using more Toradol and antispasmodics. Once her pain is controlled, she can be discharged. There is no indication for urologic intervention at this time. Job ID: [id number]
[2019-06-16] MEDS: Bisacodyl 5 MG TAB PO PRN (23:19)
[2019-06-17] MEDS: Bisacodyl 5 MG TAB PO PRN (00:30)
[2019-06-17] MEDS: Ondansetron PF 4 MG/2 ML Vial IVP PRN (03:49)
[2019-06-17] MEDS: HumaLOG 300 UNITS/3 ML VIAL SC PRN ×3 (06:02→17:46)
[2019-06-17 06:16] LABS: #Basophils 0.1 thou/uL (0.0-0.2); #Eosinphils 0.1 thou/uL (0.0-0.7); #Lymphocytes 2.2 thou/uL (1.20-3.40); #Monocytes 0.4 thou/uL (0.11-0.59); %Basophils 1.1 % (0.0-1.0); %Eosinophils 1.4 % (0.0-10.0); %Lymphocytes 38.2 % (21.0-51.0); %Neutrophils 52.3 % (42.0-75.0); Hemoglobin 11.5 g/dL (12.0-16.0); Mean Corpuscular HGB CONC 33.3 g/dL (32.0-36.0); Mean Corpuscular Hemoglobin 30.3 pg (27.0-31.0); Mean Corpuscular Volume 91.2 fL (78.0-98.0); Mean Platelet Volume 8.2 fL (7.4-10.4); Platelet Count 136 thou/uL (130-400); RBC Distribution Width 11.6 % (11.5-14.5); Red Blood Cell (RBC) Count 3.78 mill/uL (4.20-5.40); White Blood Cell (WBC) Count 5.8 thou/uL (4.8-10.8)
[2019-06-17 06:43] LABS: Anion Gap 13 mmol/L (10-20); BUN (Urea Nitrogen) 11 mg/dL (7.0-18.7); Calc. Creatinine Clearance 222 mL/min (70-130); Calcium 8.3 mg/dL (7.8-10.44); Carbon Dioxide 23 mmol/L (22-29); Chloride 109 mmol/L (98-107); Estimated GFR-MDRD 81; Glucose 221 mg/dL (70-105); Magnesium 1.8 mg/dL (1.6-2.6); Potassium 4.5 mmol/L (3.5-5.1); Sodium 140 mmol/L (136-145)
[2019-06-17] MEDS: Polyethylene Glycol 3350 17 GM Packet PO SCH (09:44)
[2019-06-17] MEDS: Phenazopyridine HCl 97.5 MG TABLET PO SCH ×3 (09:44→21:13)
[2019-06-17] MEDS: Senokot S 8.6-50 MG TAB PO SCH ×2 (09:45→21:13)
[2019-06-17] MEDS: Tamsulosin HCl 0.4 MG CAP PO SCH (09:45)
[2019-06-17] MEDS: Oxybutynin 5 MG TAB PO SCH ×3 (09:45→21:14)
[2019-06-17] MEDS: Alogliptin 25 MG TAB PO SCH (10:24)
[2019-06-17] MEDS: Ketorolac Tromethamine 30 MG/ML VIAL IVP SCH ×2 (12:02→17:45)
[2019-06-17] MEDS ORDERED: B & O PR SCH (13:30)
--- NOTE | 2019-06-17 13:48 | PDOC.HOSPP ---
- Subjective Encounter Date: 06/17/19 Encounter Time: 13:46 Subjective: The patient still has severe squeezing pain in the right side. Toradol and morphine SHROUDMAN together helps her pain. She reports decreased urine output, has urge to go but can't get it all out. Discussed with urology, can try glendy yan suppository, but no need for repeat imagine. No hydro on CT yesterday and unusual for spasms to persist this long - Objective Vital Signs & Weight: Vital Signs (12 hours) Temp Pulse Resp BP Pulse Ox 06/17/19 08:00 98.2 F 66 16 141/77 H 96 Weight Weight 321 lb 5 oz I&O: 06/16/19 06/17/19 06/18/19 06:59 06:59 06:59 Intake Total 1460 3245 Output Total 1100 Balance 1460 2145 Result Diagrams: 06/17/19 06:00 06/17/19 06:00 Additional Labs: Accuchecks 06/17/19 06/17/19 06/16/19 11:23 05:38 20:24 POC Glucose 199 H 213 H 215 H 06/16/19 16:28 POC Glucose 232 H Hospitalist ROS - Review of Systems Constitutional: denies: fever Respiratory: denies: dry - Medication Medications: Active Medications Generic Name Dose Route Start Last Admin Trade Name Freq PRN Reason Stop Dose Admin Alogliptin Benzoate 25 mg 06/16/19 09:00 06/17/19 10:24 Alogliptin PO 25 mg DAILY RY Administration Bisacodyl 10 mg 06/15/19 23:32 06/17/19 00:30 Dulcolax PO 10 mg DAILYPRN PRN Administration Constipation Hyoscyamine Sulfate 0.125 mg 06/16/19 16:58 06/16/19 17:40 Levsin PO 0.125 mg Q4H PRN Administration Bladder Spasms Promethazine HCl 12.5 mg/ 50.5 mls @ 202 mls/hr 06/15/19 23:18 06/16/19 08:17 Sodium Chloride IVPB 50.5 mls Q6H PRN Administration Nausea/vomiting, use second Morphine Sulfate 100 mg/ 100 mls @ 0 mls/hr 06/15/19 23:30 06/16/19 21:02 Dextrose/Water IV 100 mls INF PRN Administration Pain Insulin Glargine 40 units/ 0.4 mls @ 0 mls/hr 06/16/19 21:00 06/16/19 20:17 Miscellaneous Medication SC 0.4 mls HS RY Administration Ceftriaxone Sodium 1 gm/ 100 mls @ 200 mls/hr 06/16/19 21:00 06/16/19 21:04 Sodium Chloride IVPB 06/29/19 21:29 100 mls Q24HR RY Administration Insulin Human Lispro 0 units 06/16/19 00:12 06/17/19 12:03 Humalog SC 2 unit .MODERATE SLIDING SC PRN Administration Moderate Correctional Scale Ketorolac Tromethamine 30 mg 06/17/19 12:00 06/17/19 12:02 Toradol IVP 06/22/19 12:01 30 mg Q6HR RY Administration Ondansetron HCl 4 mg 06/15/19 23:18 06/17/19 03:49 Zofran IVP 4 mg Q6H PRN Administration Nausea/Vomiting, use 1st Oxybutynin Chloride 5 mg 06/16/19 09:00 06/17/19 09:45 Ditropan PO 5 mg TID RY Administration Pantoprazole Sodium 40 mg 06/16/19 09:00 06/17/19 09:45 Protonix PO 40 mg DAILY RY Administration Phenazopyridine HCl 97.5 mg 06/16/19 09:00 06/17/19 09:44 Azo Standard PO 97.5 mg TID RY Administration Polyethylene Glycol 17 gm 06/16/19 09:00 06/17/19 09:44 Miralax PO 17 gm DAILY RY Administration Senna/Docusate Sodium 1 tab 06/16/19 09:00 06/17/19 09:45 Senokot S PO 1 tab BID RY Administration Tamsulosin HCl 0.4 mg 06/16/19 09:00 06/17/19 09:45 Flomax PO 0.4 mg DAILY RY Administration Trazodone HCl 100 mg 06/16/19 21:00 06/16/19 20:17 Desyrel PO 100 mg HS RY Administration - Exam General Appearance: NAD, awake alert Eye: PERRL, anicteric sclera ENT: normocephalic atraumatic, no oropharyngeal lesions Neck: supple, symmetric, no JVD, no thyromegaly Heart: RRR, no murmur, no gallops, no rubs Respiratory: CTAB, no wheezes, no rales, no ronchi Gastrointestinal: soft Gastrointestinal - other findings: right flank and CVA tenderness Extremities: no cyanosis, no clubbing, no edema Skin: normal turgor, no lesions, no rashes Hosp A/P - Plan CT abdomen: bilateral nonobstructing intrarenal calculi. Stone burden on the right has decreased significantly. Stable hepatosplenomegaly with probable hepatic steatosis. Renal ultrasound: right hydronephrosis This is 38 year old female who presented with COPD, kidney stone, T2DM who presented with right flank pain after having a stent removed. Kidney stone s/p stent removal - right hydronephrosis appears to have resolved on CT abdomen with stone burden decreased. - on IV ceftriaxone. Urine culture normal, but this was after antibiotics received - on morphine SHROUDMAN, continue toradol 30 mg q6 hours - advance to regular diet, advised patient to drink at least 2L water daily - continue phenopydine, levsin prn, add glendy yan suppository bid prn Hypomagnesemia - resolved Anemia - Hb 11 - will check iron panel Fatty liver/Hepatosplenomegaly - outpatient follow up Dispo: d/c when weaned off SHROUDMAN and tolerating diet Code status: full code
[2019-06-17] MEDS: Lidocaine 5% Patch TD SCH (14:31)
[2019-06-17] MEDS: Morphine Sulfate 100 MG in Dextrose 5% in Water 98 ML IV PRN (17:46)
[2019-06-17] MEDS: Sodium Chloride 0.9% 1,000 ML IV SCH (17:51)
--- NOTE | 2019-06-17 18:00 | PRG ---
DATE OF SERVICE: 06/17/2019 SUBJECTIVE: The patient continues to have pain. It has not improved since yesterday. She has required large amounts of IV narcotic. She is getting Toradol IV every 6 hours as well as oxybutynin, phenazopyridine, and Levsin. She continues to report a throbbing in her back, which is intermittent and a constant pressure radiating around to her right lower quadrant and groin. She has some urinary hesitancy as well. Urine output during the day today has been approximately 400 mL. Reports intermittent small amounts of blood in the urine. She has no other complaints. OBJECTIVE: VITAL SIGNS: Temperature 98.2, heart rate 66, respirations 16, oxygen saturation 96% on room air, and blood pressure 141/77. GENERAL: She is alert and oriented x3, in no apparent distress. CARDIOVASCULAR: Regular rate and rhythm. PULMONARY: Breathing unlabored. ABDOMEN: Soft, mildly tender to palpation over the right flank and right lower quadrant. No rebound or guarding. No significant CVA tenderness. No suprapubic tenderness to palpation. EXTREMITIES: Warm and well perfused. No edema. NEUROLOGIC: No focal deficits. LABORATORY DATA: Urine culture is negative. Sodium 140, potassium 4.5, chloride 109, bicarb 23, BUN 11, and creatinine 0.79. ASSESSMENT: A 38-year-old female with right flank pain and right-sided abdominal pain, status post right ureteroscopy with laser and right stent and subsequent stent removal. PLAN: Etiology of the patient's pain is unclear. Her CT scan yesterday demonstrated only some high-density material in the area of the lower pole, likely some sandlike particles that is unclear whether she is passing small blood clots, which are giving her renal colic, but hydronephrosis has resolved. Her pain is not improving. She is requiring very large amounts of IV narcotics. Given her lower urinary tract symptoms, we will start B and O suppositories to see if this helps. I have discussed her case with the hospitalist. Recommend IV narcotics be limited. We tried to transition to p.o. narcotics. If she is in this bench pain tomorrow, additional imaging may be necessary, although we will not likely be high yield. I will let Dr. Ibarra know about the patient and her clinical course and he will resume care tomorrow. Job ID: [id number]
[2019-06-17] MEDS: traZODone HCl 50 MG TAB PO SCH (21:13)
[2019-06-17] MEDS: cefTRIAXone\\ROCEPHIN 1 GM in Sodium Chloride 0.9% 100 ML IVPB SCH (21:14)
[2019-06-17] MEDS: Insulin Glargine 40 UNITS in Pre-Filled Syringe 1 EACH SC SCH (21:14)
--- NOTE | 2019-06-17 21:42 | ULT ---
Ultrasound unilateral right kidney: DATE: 06/17/2019 HISTORY: Follow-up right hydronephrosis in 38-year-old female with decreased urine output and flank pain. FINDINGS: The right kidney is less well visualized on the current ultrasound compared to the previous due to sh adowing from adjacent bowel gas. Right kidney is measured as 10.5 x 4.5 x 6 cm. Again noted is the apparent mild dilation of renal pelvis and all calyces. The appearance is similar to that of the ultr asound 2 days ago. However, the CT yesterday shows minimal right hydronephrosis. The approximately 1 cm moderately hyperechoic focus at right renal midpole on this ultrasound does not correspond to an y calculus on the CT. Instead, the calcification was at the lower pole calyx on the CT. No interval change in the appearance of the right kidney compared to the previous ultrasound. IMPRESSION: No interval change in mild right hydronephrosis.
[2019-06-18] MEDS: Ketorolac Tromethamine 30 MG/ML VIAL IVP SCH ×4 (00:06→18:01)
[2019-06-18] MEDS: Lidocaine Patch Removal 1 EACH TOP SCH (02:21)
[2019-06-18] MEDS: Sodium Chloride 0.9% 1,000 ML IV SCH ×2 (03:19→15:06)
[2019-06-18 05:47] LABS: #Eosinphils 0.1 thou/uL (0.0-0.7); #Lymphocytes 2.4 thou/uL (1.20-3.40); #Monocytes 0.3 thou/uL (0.11-0.59); #Neutrophils 2.8 thou/uL (1.40-6.50); %Basophils 0.4 % (0.0-1.0); %Lymphocytes 43.1 % (21.0-51.0); %Neutrophils 49.5 % (42.0-75.0); Hemoglobin 10.5 g/dL (12.0-16.0); Mean Corpuscular HGB CONC 32.5 g/dL (32.0-36.0); Mean Corpuscular Hemoglobin 29.4 pg (27.0-31.0); Mean Corpuscular Volume 90.5 fL (78.0-98.0); Mean Platelet Volume 8.1 fL (7.4-10.4); Platelet Count 169 thou/uL (130-400); RBC Distribution Width 11.6 % (11.5-14.5); Red Blood Cell (RBC) Count 3.59 mill/uL (4.20-5.40); White Blood Cell (WBC) Count 5.6 thou/uL (4.8-10.8)
[2019-06-18 06:12] LABS: ALT (SGPT) 31 U/L (8-55); AST (SGOT) 29 U/L (5-34); Albumin 3.6 g/dL (3.5-5.0); Alkaline Phosphatase 75 U/L (40-110); Anion Gap 11 mmol/L (10-20); BUN (Urea Nitrogen) 12 mg/dL (7.0-18.7); Bilirubin, Total 0.4 mg/dL (0.2-1.2); Calc. Creatinine Clearance 228 mL/min (70-130); Calcium 8.2 mg/dL (7.8-10.44); Carbon Dioxide 23 mmol/L (22-29); Chloride 109 mmol/L (98-107); Estimated GFR-MDRD 84; Globulin 2.8 g/dL (2.4-3.5); Glucose 175 mg/dL (70-105); Iron 61 ug/dL (50-170); Iron Binding Capacity, Total 239 mcg/dL (265-497); Magnesium 1.6 mg/dL (1.6-2.6); Potassium 4.5 mmol/L (3.5-5.1); Protein, Total 6.4 g/dL (6.0-8.3); Sodium 138 mmol/L (136-145)
[2019-06-18 06:13] LABS: Iron 61 ug/dL (50-170); Iron Binding Capacity, Total 234 mcg/dL (265-497)
[2019-06-18] MEDS: Phenazopyridine HCl 97.5 MG TABLET PO SCH ×3 (08:42→20:36)
[2019-06-18] MEDS: Polyethylene Glycol 3350 17 GM Packet PO SCH (08:43)
[2019-06-18] MEDS: Senokot S 8.6-50 MG TAB PO SCH ×2 (08:43→20:36)
[2019-06-18] MEDS: Enoxaparin Sodium 40 MG/0.4 ML SYRINGE SC SCH (08:44)
[2019-06-18] MEDS: Oxybutynin 5 MG TAB PO SCH ×3 (08:44→20:36)
[2019-06-18] MEDS: Tamsulosin HCl 0.4 MG CAP PO SCH (08:45)
[2019-06-18] MEDS: Promethazine HCl 12.5 MG in Sodium Chloride 0.9% 50 ML IVPB PRN (08:53)
[2019-06-18] MEDS: Alogliptin 25 MG TAB PO SCH (09:33)
[2019-06-18] MEDS: Ondansetron PF 4 MG/2 ML Vial IVP PRN (12:22)
[2019-06-18] MEDS: HumaLOG 300 UNITS/3 ML VIAL SC PRN ×2 (12:28→20:36)
[2019-06-18] MEDS: Lidocaine 5% Patch TD SCH (13:54)
--- NOTE | 2019-06-18 13:54 | PRG ---
DATE OF SERVICE: 06/18/2019 SUBJECTIVE: The patient is still complaining a lot of pain. She is having pain mostly on the right side near the pelvic area. She continues to pass hematuria. Her pain medications are helping, but as soon as she stops, her pain returns. Of note, Dr. Uribe did let me know what happened over the weekend. Her CT and ultrasound were both relatively nonconcerning. She has very mild right hydronephrosis with CT demonstrating no obstruction and no ureteral calculi, which has some inflammation in the distal ureter. The patient denies any fevers. OBJECTIVE: VITAL SIGNS: Temperature 98.7, pulse 101, respirations 18, blood pressure 133/75, saturation 98% on room air. GENERAL: Appears really uncomfortable, but is still communicating appropriately. Sign language interpretation was used during the encounter today. The patient is morbidly obese. CARDIOVASCULAR: Sinus tachycardia. ABDOMEN: Soft, tender to palpation in the right lower quadrant, difficult to palpate due to the patient's morbid obesity. : Deferred at this time. EXTREMITIES: No clubbing, cyanosis, or edema. LABORATORY EVALUATION: White count today is 5.6 with a creatinine of 0.77. Urinalysis from the still demonstrates greater than 50 RBCs, 21-50 WBCs, 1+ bacteria. The patient is currently on antibiotics. Urine culture is negative. ASSESSMENT AND PLAN: A 38-year-old white female with likely ureteral inflammation with ongoing hematuria. There may be some mild clots in her right ureter resulting in mild hydronephrosis and pain. At this point, the patient has significant amount of discomfort with her previous stent and another stent would likely add to her discomfort and promote ongoing bleeding unless she had severe hydronephrosis, I would not recommend any other further decompressive procedures. I do think that over time that her inflammation will subside. The patient does appear to have a fairly low threshold for pain. I suspect that with anti-inflammatories and pain medication as well as continuing her antispasmodics of the bladder, that ultimately she should have improvement in her symptoms overall. I will continue to follow along and make recommendations. If her symptoms are not improving in approximately 24 to 48 hours, I may consider a repeat renal ultrasound to ensure that there is not interval worsening of her hydronephrosis. Job ID: [id number]
--- NOTE | 2019-06-18 15:40 | PDOC.HOSPP ---
- Subjective Encounter Date: 06/18/19 Encounter Time: 14:00 Subjective: The patient is still having a lot of flank pain. She is not urinating enough. She is eating some of her diet. No nausea or vomiting. She had a bowel movement yesterday, but wants a stool softener - Objective Vital Signs & Weight: Vital Signs (12 hours) Temp Pulse Resp BP Pulse Ox 06/18/19 12:44 98.7 F 101 H 18 133/75 98 06/18/19 08:00 97.7 F 109 H 18 134/89 100 Weight Weight 321 lb 5 oz I&O: 06/17/19 06/18/19 06/19/19 06:59 06:59 06:59 Intake Total 3245 2800 Output Total 1100 750 Balance 2145 0 Result Diagrams: 06/18/19 05:33 06/18/19 05:33 Additional Labs: Accuchecks 06/18/19 06/17/19 06/17/19 12:30 20:50 16:08 POC Glucose 197 H 204 H 176 H Hospitalist ROS - Review of Systems Constitutional: denies: fever, chills Respiratory: denies: cough, shortness of breath - Medication Medications: Active Medications Generic Name Dose Route Start Last Admin Trade Name Freq PRN Reason Stop Dose Admin Acetaminophen 650 mg 06/15/19 23:32 06/17/19 21:20 Tylenol PO 650 mg Q4H PRN Administration Headache/Fever/Mild Pain (1-3) Alogliptin Benzoate 25 mg 06/16/19 09:00 06/18/19 09:33 Alogliptin PO 25 mg DAILY RY Administration Bisacodyl 10 mg 06/15/19 23:32 06/17/19 00:30 Dulcolax PO 10 mg DAILYPRN PRN Administration Constipation Enoxaparin Sodium 40 mg 06/18/19 09:00 06/18/19 08:44 Lovenox SC 40 mg 0900 RY Administration Hyoscyamine Sulfate 0.125 mg 06/16/19 16:58 06/16/19 17:40 Levsin PO 0.125 mg Q4H PRN Administration Bladder Spasms Promethazine HCl 12.5 mg/ 50.5 mls @ 202 mls/hr 06/15/19 23:18 06/18/19 08:53 Sodium Chloride IVPB 50.5 mls Q6H PRN Administration Nausea/vomiting, use second Morphine Sulfate 100 mg/ 100 mls @ 0 mls/hr 06/15/19 23:30 06/17/19 17:46 Dextrose/Water IV 100 mls INF PRN Administration Pain Insulin Glargine 40 units/ 0.4 mls @ 0 mls/hr 06/16/19 21:00 06/17/19 21:14 Miscellaneous Medication SC 0.4 mls HS RY Administration Ceftriaxone Sodium 1 gm/ 100 mls @ 200 mls/hr 06/16/19 21:00 06/17/19 21:14 Sodium Chloride IVPB 06/29/19 21:29 100 mls Q24HR RY Administration Sodium Chloride 1,000 mls @ 100 mls/hr 06/17/19 17:15 06/18/19 15:06 Normal Saline 0.9% IV 1,000 mls .Q10H RY Administration Insulin Human Lispro 0 units 06/16/19 00:12 06/18/19 12:28 Humalog SC 2 unit .MODERATE SLIDING SC PRN Administration Moderate Correctional Scale Ketorolac Tromethamine 30 mg 06/17/19 12:00 06/18/19 12:24 Toradol IVP 06/22/19 12:01 30 mg Q6HR RY Administration Lidocaine 1 patch 06/17/19 13:25 06/18/19 13:54 Lidoderm 5% Patch TD 1 patch Q24HR RY Administration Miscellaneous Medication 1 each 06/18/19 01:25 06/18/19 02:21 Lidocaine Patch Removal TOP Not Given Q24HR [facility] Ondansetron HCl 4 mg 06/15/19 23:18 06/18/19 12:22 Zofran IVP 4 mg Q6H PRN Administration Nausea/Vomiting, use 1st Oxybutynin Chloride 5 mg 06/16/19 09:00 06/18/19 14:00 Ditropan PO 5 mg TID RY Administration Pantoprazole Sodium 40 mg 06/16/19 09:00 06/18/19 08:42 Protonix PO 40 mg DAILY RY Administration Phenazopyridine HCl 97.5 mg 06/16/19 09:00 06/18/19 14:00 Azo Standard PO 97.5 mg TID RY Administration Polyethylene Glycol 17 gm 06/16/19 09:00 06/18/19 08:43 Miralax PO 17 gm DAILY RY Administration Senna/Docusate Sodium 1 tab 06/16/19 09:00 06/18/19 08:43 Senokot S PO 1 tab BID RY Administration Tamsulosin HCl 0.4 mg 06/16/19 09:00 06/18/19 08:45 Flomax PO 0.4 mg DAILY RY Administration Trazodone HCl 100 mg 06/16/19 21:00 06/17/19 21:13 Desyrel PO 100 mg HS RY Administration - Exam General Appearance: NAD, awake alert Eye: PERRL, anicteric sclera ENT: normocephalic atraumatic, no oropharyngeal lesions Neck: supple, symmetric, no JVD, no thyromegaly Heart: RRR, no murmur, no gallops, no rubs Respiratory: CTAB, no wheezes, no rales, no ronchi Gastrointestinal: soft, non-distended Gastrointestinal - other findings: RUQ tenderness, right flank tenderness Extremities: no cyanosis, no clubbing, no edema Skin: normal turgor, no lesions, no rashes Neurological: cranial nerve grossly intact, normal sensation to touch, no focal deficits, no new deficit Hosp A/P - Plan CT abdomen: bilateral nonobstructing intrarenal calculi. Stone burden on the right has decreased significantly. Stable hepatosplenomegaly with probable hepatic steatosis. Renal ultrasound: right hydronephrosis This is 38 year old female who presented with COPD, kidney stone, T2DM who presented with right flank pain after having a stent removed. Kidney stone s/p stent removal - right hydronephrosis appears to have resolved on CT abdomen with stone burden decreased. Repeat renal ultrasound 06/17 shows mild right hydronephrosis - on IV ceftriaxone. Urine culture normal, but this was after antibiotics received. Continue for now - on morphine CONCRETER, continue toradol 30 mg q6 hours - advance to regular diet, advised patient to drink at least 2L water daily - continue phenopydine, levsin prn, add glendy yan suppository bid prn - per Dr. Ibarra this may take time to resolve Hypomagnesemia - resolved Anemia - Hb 11 - iron panel unremarkable Fatty liver/Hepatosplenomegaly - outpatient follow up Dispo: d/c when weaned off CONCRETER and tolerating diet Code status: full code
[2019-06-18] MEDS: Morphine Sulfate 100 MG in Dextrose 5% in Water 98 ML IV PRN (20:32)
[2019-06-18] MEDS: traZODone HCl 50 MG TAB PO SCH (20:35)
[2019-06-18] MEDS: Insulin Glargine 40 UNITS in Pre-Filled Syringe 1 EACH SC SCH (20:36)
[2019-06-18] MEDS: cefTRIAXone\\ROCEPHIN 1 GM in Sodium Chloride 0.9% 100 ML IVPB SCH (20:36)
[2019-06-18] MEDS: Bisacodyl 5 MG TAB PO PRN (21:37)
[2019-06-19] MEDS: Sodium Chloride 0.9% 1,000 ML IV SCH ×3 (00:02→20:10)
[2019-06-19] MEDS: Ondansetron PF 4 MG/2 ML Vial IVP PRN (00:02)
[2019-06-19] MEDS: Ketorolac Tromethamine 30 MG/ML VIAL IVP SCH ×5 (00:03→23:29)
[2019-06-19] MEDS: Lidocaine Patch Removal 1 EACH TOP SCH (01:37)
[2019-06-19 05:07] LABS: Mean Corpuscular HGB CONC 31.9 g/dL (32.0-36.0); Mean Corpuscular Volume 90.8 fL (78.0-98.0); Mean Platelet Volume 8.2 fL (7.4-10.4); Platelet Count 157 thou/uL (130-400); RBC Distribution Width 11.8 % (11.5-14.5); Red Blood Cell (RBC) Count 3.46 mill/uL (4.20-5.40); White Blood Cell (WBC) Count 5.6 thou/uL (4.8-10.8)
[2019-06-19 05:30] LABS: Anion Gap 11 mmol/L (10-20); BUN (Urea Nitrogen) 12 mg/dL (7.0-18.7); Calc. Creatinine Clearance 219 mL/min (70-130); Calcium 8.3 mg/dL (7.8-10.44); Carbon Dioxide 24 mmol/L (22-29); Chloride 110 mmol/L (98-107); Estimated GFR-MDRD 80; Glucose 243 mg/dL (70-105); Potassium 4.7 mmol/L (3.5-5.1); Sodium 140 mmol/L (136-145)
[2019-06-19] MEDS: HumaLOG 300 UNITS/3 ML VIAL SC PRN (06:25)
[2019-06-19] MEDS: Enoxaparin Sodium 40 MG/0.4 ML SYRINGE SC SCH (08:01)
[2019-06-19] MEDS: Senokot S 8.6-50 MG TAB PO SCH ×2 (08:01→20:08)
[2019-06-19] MEDS: Phenazopyridine HCl 97.5 MG TABLET PO SCH ×3 (08:01→20:08)
[2019-06-19] MEDS: Polyethylene Glycol 3350 17 GM Packet PO SCH (08:01)
[2019-06-19] MEDS: Oxybutynin 5 MG TAB PO SCH ×3 (08:01→20:08)
[2019-06-19] MEDS: Tamsulosin HCl 0.4 MG CAP PO SCH (08:01)
[2019-06-19] MEDS: Alogliptin 25 MG TAB PO SCH (09:32)
[2019-06-19] MEDS ORDERED: Folic Acid 1 MG TAB PO SCH (11:15)
--- NOTE | 2019-06-19 13:38 | PDOC.HOSPP ---
- Subjective Encounter Date: 06/19/19 Encounter Time: 12:00 Subjective: The patient continues to have severe right flank pain. She had the urge to have a bowel movement at the time of my evaluation. She was able to eat some solid food yesterday. She has ambulated some. She still reports decreased urine output - Objective Vital Signs & Weight: Vital Signs (12 hours) Temp Pulse Resp BP Pulse Ox 06/19/19 12:13 98.5 F 89 20 124/78 91 L 06/19/19 08:00 95 06/19/19 07:30 98.6 F 99 18 122/73 95 06/19/19 04:53 98.5 F 94 22 H 112/72 98 Weight Weight 321 lb 5 oz I&O: 06/18/19 06/19/19 06/20/19 06:59 06:59 06:59 Intake Total 2800 3466 240 Output Total 750 400 Balance 2050 3066 240 Result Diagrams: 06/19/19 04:44 06/19/19 04:44 Additional Labs: Accuchecks 06/19/19 06/19/19 06/18/19 12:15 05:57 19:45 POC Glucose 184 H 254 H 205 H 06/18/19 17:50 POC Glucose 144 H Hospitalist ROS - Medication Medications: Active Medications Generic Name Dose Route Start Last Admin Trade Name Freq PRN Reason Stop Dose Admin Acetaminophen 650 mg 06/15/19 23:32 06/17/19 21:20 Tylenol PO 650 mg Q4H PRN Administration Headache/Fever/Mild Pain (1-3) Alogliptin Benzoate 25 mg 06/16/19 09:00 06/19/19 09:32 Alogliptin PO 25 mg DAILY RY Administration Bisacodyl 10 mg 06/15/19 23:32 06/18/19 21:37 Dulcolax PO 10 mg DAILYPRN PRN Administration Constipation Enoxaparin Sodium 40 mg 06/18/19 09:00 06/19/19 08:01 Lovenox SC 40 mg 0900 RY Administration Hyoscyamine Sulfate 0.125 mg 06/16/19 16:58 06/16/19 17:40 Levsin PO 0.125 mg Q4H PRN Administration Bladder Spasms Promethazine HCl 12.5 mg/ 50.5 mls @ 202 mls/hr 06/15/19 23:18 06/18/19 08:53 Sodium Chloride IVPB 50.5 mls Q6H PRN Administration Nausea/vomiting, use second Morphine Sulfate 100 mg/ 100 mls @ 0 mls/hr 06/15/19 23:30 06/18/19 20:32 Dextrose/Water IV 100 mls INF PRN Administration Pain Insulin Glargine 40 units/ 0.4 mls @ 0 mls/hr 06/16/19 21:00 06/18/19 20:36 Miscellaneous Medication SC 0.4 mls HS RY Administration Ceftriaxone Sodium 1 gm/ 100 mls @ 200 mls/hr 06/16/19 21:00 06/18/19 20:36 Sodium Chloride IVPB 06/29/19 21:29 100 mls Q24HR RY Administration Sodium Chloride 1,000 mls @ 100 mls/hr 06/17/19 17:15 06/19/19 09:32 Normal Saline 0.9% IV 1,000 mls .Q10H RY Administration Insulin Human Lispro 0 units 06/16/19 00:12 06/19/19 06:25 Humalog SC 6 unit .MODERATE SLIDING SC PRN Administration Moderate Correctional Scale Ketorolac Tromethamine 30 mg 06/17/19 12:00 06/19/19 11:40 Toradol IVP 06/22/19 12:01 30 mg Q6HR RY Administration Lidocaine 1 patch 06/17/19 13:25 06/18/19 13:54 Lidoderm 5% Patch TD 1 patch Q24HR RY Administration Miscellaneous Medication 1 each 06/18/19 01:25 06/19/19 01:37 Lidocaine Patch Removal TOP Not Given Q24HR RY Ondansetron HCl 4 mg 06/15/19 23:18 06/19/19 00:02 Zofran IVP 4 mg Q6H PRN Administration Nausea/Vomiting, use 1st Oxybutynin Chloride 5 mg 06/16/19 09:00 06/19/19 08:01 Ditropan PO 5 mg TID RY Administration Pantoprazole Sodium 40 mg 06/16/19 09:00 06/19/19 08:01 Protonix PO 40 mg DAILY RY Administration Phenazopyridine HCl 97.5 mg 06/16/19 09:00 06/19/19 08:01 Azo Standard PO 97.5 mg TID RY Administration Polyethylene Glycol 17 gm 06/16/19 09:00 06/19/19 08:01 Miralax PO 17 gm DAILY RY Administration Senna/Docusate Sodium 1 tab 06/16/19 09:00 06/19/19 08:01 Senokot S PO 1 tab BID RY Administration Tamsulosin HCl 0.4 mg 06/16/19 09:00 06/19/19 08:01 Flomax PO 0.4 mg DAILY RY Administration Trazodone HCl 100 mg 06/16/19 21:00 06/18/19 20:35 Desyrel PO 100 mg HS RY Administration - Exam General Appearance: NAD, awake alert Eye: PERRL, anicteric sclera ENT: normocephalic atraumatic, no oropharyngeal lesions Neck: supple, symmetric, no JVD Heart: RRR, no murmur, no gallops, no rubs Respiratory: CTAB, no wheezes, no rales, no ronchi Gastrointestinal: soft Gastrointestinal - other findings: right CVA tenderness Extremities: no cyanosis, no clubbing, no edema Skin: normal turgor, no lesions, no rashes Neurological: cranial nerve grossly intact, normal sensation to touch, no focal deficits, no new deficit Hosp A/P - Plan CT abdomen: bilateral nonobstructing intrarenal calculi. Stone burden on the right has decreased significantly. Stable hepatosplenomegaly with probable hepatic steatosis. Renal ultrasound: right hydronephrosis This is 38 year old female who presented with COPD, kidney stone, T2DM who presented with right flank pain after having a stent removed. Kidney stone s/p stent removal Bladder spasms - right hydronephrosis appears to have resolved on CT abdomen with stone burden decreased. Repeat renal ultrasound 06/17 shows mild right hydronephrosis - on IV ceftriaxone. Urine culture normal, but this was after antibiotics received. Continue for now - will repeat renal ultrasound per Dr. Ibarra's note 06/18. 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
[2019-06-19] MEDS: Lidocaine 5% Patch TD SCH (13:44)
[2019-06-19] MEDS ORDERED: HYDROcodone/Acetaminophen 10/325 mg Tablet PO PRN (14:27)
[2019-06-19] MEDS: HYDROcodone/Acetaminophen 10/325 mg Tablet PO PRN ×2 (14:43→20:13)
--- NOTE | 2019-06-19 15:00 | ULT ---
RENAL ULTRASOUND HISTORY: Persistent flank pain after removal of stent COMPARISON: CT abdomen and pelvis without contrast dated June 16, 2019 FINDINGS: Right Kidney: Size: 11.2 x 5.4 x 6.7 cm Abnormality: Normal cortical echotexture. No hydronephrosis. There is a persistent nonobstructing julian culus within the lower pole of the right kidney, better seen on the CT evaluation. Left Kidney: Size: 11.0 x 6.9 x 5.7 cm Abnormality: Normal cortical echotexture. No hydronephrosis There is a persistent nonobstructing calculus involving the lower pole of the left kidney that is bet ter detailed on the comparison CT evaluation. Urinary bladder: The bladder is largely decompressed with a prevoid bladder volume of 32 cc. IMPRESSION: No hydronephrosis. Stable bilateral nephrolithiasis.
[2019-06-19] MEDS: Fentanyl 100 MCG/2 ML VIAL SLOW IVP PRN (17:37)
[2019-06-19] MEDS: cefTRIAXone\\ROCEPHIN 1 GM in Sodium Chloride 0.9% 100 ML IVPB SCH (20:08)
[2019-06-19] MEDS: traZODone HCl 50 MG TAB PO SCH (20:09)
[2019-06-19] MEDS: Insulin Glargine 40 UNITS in Pre-Filled Syringe 1 EACH SC SCH (20:15)
[2019-06-20] MEDS: Fentanyl 100 MCG/2 ML VIAL SLOW IVP PRN ×3 (00:23→16:51)
[2019-06-20] MEDS: Lidocaine Patch Removal 1 EACH TOP SCH (02:30)
[2019-06-20] MEDS: HYDROcodone/Acetaminophen 10/325 mg Tablet PO PRN ×4 (04:01→23:35)
[2019-06-20] MEDS: Ketorolac Tromethamine 30 MG/ML VIAL IVP SCH ×2 (06:29→11:29)
[2019-06-20] MEDS: Sodium Chloride 0.9% 1,000 ML IV SCH ×3 (06:29→20:59)
[2019-06-20] MEDS: HumaLOG 300 UNITS/3 ML VIAL SC PRN (06:30)
[2019-06-20] MEDS: Phenazopyridine HCl 97.5 MG TABLET PO SCH ×3 (08:13→20:57)
[2019-06-20] MEDS: Enoxaparin Sodium 40 MG/0.4 ML SYRINGE SC SCH (08:13)
[2019-06-20] MEDS: Folic Acid 1 MG TAB PO SCH (08:13)
[2019-06-20] MEDS: Tamsulosin HCl 0.4 MG CAP PO SCH (08:13)
[2019-06-20] MEDS: Oxybutynin 5 MG TAB PO SCH ×3 (08:13→20:57)
[2019-06-20] MEDS: Senokot S 8.6-50 MG TAB PO SCH ×2 (08:13→20:56)
[2019-06-20] MEDS: Polyethylene Glycol 3350 17 GM Packet PO SCH (08:13)
[2019-06-20] MEDS: Alogliptin 25 MG TAB PO SCH (11:03)
[2019-06-20] MEDS: Dicyclomine 10 MG CAP PO SCH ×3 (13:10→20:57)
[2019-06-20] MEDS: Lidocaine 5% Patch TD SCH (13:11)
--- NOTE | 2019-06-20 16:58 | PDOC.HOSPP ---
- Subjective Encounter Date: 06/20/19 Encounter Time: 16:57 Subjective: THe patient is doing better. She is still has severe flank pain. SHe is passing some clots in her urine, urine output has improved some. No bowel movement today but had one yesterday. Encouraged patient to avoid IV pain meds if possible and only take oral - Objective Vital Signs & Weight: Vital Signs (12 hours) Temp Pulse Resp BP Pulse Ox 06/20/19 08:00 92 L 06/20/19 07:53 98.1 F 87 16 103/59 L 92 L Weight Weight 321 lb 5 oz I&O: 06/19/19 06/20/19 06/21/19 06:59 06:59 06:59 Intake Total 3466 2740 720 Output Total 400 Balance 3066 2740 720 Result Diagrams: 06/19/19 04:44 06/19/19 04:44 Additional Labs: Accuchecks 06/20/19 06/20/19 06/19/19 11:46 04:39 20:16 POC Glucose 162 H 186 H 188 H 06/19/19 17:05 POC Glucose 159 H Hospitalist ROS - Review of Systems Constitutional: denies: fever, chills Respiratory: denies: cough, dry - Medication Medications: Active Medications Generic Name Dose Route Start Last Admin Trade Name Freq PRN Reason Stop Dose Admin Acetaminophen 650 mg 06/15/19 23:32 06/17/19 21:20 Tylenol PO 650 mg Q4H PRN Administration Headache/Fever/Mild Pain (1-3) Hydrocodone Bitart/Acetaminophen 2 tab 06/19/19 14:27 06/20/19 11:26 Melvin 10/325 PO 2 tab Q4H PRN Administration PAIN SCALE 5-10 Alogliptin Benzoate 25 mg 06/16/19 09:00 06/20/19 11:03 Alogliptin PO 25 mg DAILY RY Administration Bisacodyl 10 mg 06/15/19 23:32 06/18/19 21:37 Dulcolax PO 10 mg DAILYPRN PRN Administration Constipation Dicyclomine HCl 10 mg 06/20/19 13:00 06/20/19 16:52 Bentyl PO 10 mg QID RY Administration Enoxaparin Sodium 40 mg 06/18/19 09:00 06/20/19 08:13 Lovenox SC 40 mg 0900 RY Administration Folic Acid 1 mg 06/20/19 09:00 06/20/19 08:13 Folvite PO 1 mg DAILY RY Administration Hyoscyamine Sulfate 0.125 mg 06/16/19 16:58 06/20/19 06:29 Levsin PO 0.125 mg Q4H PRN Administration Bladder Spasms Promethazine HCl 12.5 mg/ 50.5 mls @ 202 mls/hr 06/15/19 23:18 06/18/19 08:53 Sodium Chloride IVPB 50.5 mls Q6H PRN Administration Nausea/vomiting, use second Insulin Glargine 40 units/ 0.4 mls @ 0 mls/hr 06/16/19 21:00 06/19/19 20:15 Miscellaneous Medication SC 0.4 mls HS RY Administration Ceftriaxone Sodium 1 gm/ 100 mls @ 200 mls/hr 06/16/19 21:00 06/19/19 20:08 Sodium Chloride IVPB 06/29/19 21:29 100 mls Q24HR RY Administration Sodium Chloride 1,000 mls @ 100 mls/hr 06/17/19 17:15 06/20/19 14:38 Normal Saline 0.9% IV 1,000 mls .Q10H RY Administration Insulin Human Lispro 0 units 06/16/19 00:12 06/20/19 06:30 Humalog SC 2 unit .MODERATE SLIDING SC PRN Administration Moderate Correctional Scale Lidocaine 1 patch 06/17/19 13:25 06/20/19 13:11 Lidoderm 5% Patch TD 1 patch Q24HR RY Administration Miscellaneous Medication 1 each 06/18/19 01:25 06/20/19 02:30 Lidocaine Patch Removal TOP Not Given Q24HR RY Ondansetron HCl 4 mg 06/15/19 23:18 06/19/19 00:02 Zofran IVP 4 mg Q6H PRN Administration Nausea/Vomiting, use 1st Oxybutynin Chloride 5 mg 06/16/19 09:00 06/20/19 14:38 Ditropan PO 5 mg TID RY Administration Pantoprazole Sodium 40 mg 06/16/19 09:00 06/20/19 08:13 Protonix PO 40 mg DAILY RY Administration Phenazopyridine HCl 97.5 mg 06/16/19 09:00 06/20/19 14:38 Azo Standard PO 97.5 mg TID RY Administration Polyethylene Glycol 17 gm 06/16/19 09:00 06/20/19 08:13 Miralax PO 17 gm DAILY RY Administration Senna/Docusate Sodium 1 tab 06/16/19 09:00 06/20/19 08:13 Senokot S PO 1 tab BID RY Administration Tamsulosin HCl 0.4 mg 06/16/19 09:00 06/20/19 08:13 Flomax PO 0.4 mg DAILY RY Administration Trazodone HCl 100 mg 06/16/19 21:00 06/19/19 20:09 Desyrel PO 100 mg HS RY Administration - Exam General Appearance: NAD, awake alert General - other findings: morbidly obese Eye: PERRL, anicteric sclera ENT: normocephalic atraumatic, no oropharyngeal lesions Neck: supple, symmetric, no JVD, no carotid bruit Heart: RRR, no murmur, no gallops, no rubs Respiratory: CTAB, no wheezes, no rales, no ronchi Gastrointestinal: soft, non-distended Gastrointestinal - other findings: right CVA tenderness Extremities: no cyanosis, no clubbing, no edema Skin: normal turgor, no lesions, no rashes Neurological: cranial nerve grossly intact, normal sensation to touch, no focal deficits, no new deficit Musculoskeletal: normal tone, normal strength, no muscle wasting Hosp A/P - Plan CT abdomen: bilateral nonobstructing intrarenal calculi. Stone burden on the right has decreased significantly. Stable hepatosplenomegaly with probable hepatic steatosis. Renal ultrasound: right hydronephrosis Renal ultrasound 06/19 : resolution of hydronephrosis. Persistent bilateral nonobstructing calculi This is 38 year old female who presented with COPD, kidney stone, T2DM who presented with right flank pain after having a stent removed. #Kidney stone s/p stent removal #Bladder spasms - right hydronephrosis appears to have resolved on CT abdomen with stone burden decreased. Repeat renal ultrasound 06/17 shows mild right hydronephrosis . Renal ultrasound 06/19 shows resolution of hydronephrosis - on IV ceftriaxone day 4. Urine culture normal, but this was after antibiotics received. Switch to po on discharge, treat for 7 days - added bentyl prn for pain - will add toradol po prn for pain - d/c IV fentanyl prn - continue oral narcotics prn per pain management - continue phenopydine, levsin prn, add glendy yan suppository bid prn - needs to ambulate and ordered PTOT Hypomagnesemia - resolved Folate deficiency Anemia - Hb 11 - iron panel unremarkable - started folic acid Fatty liver/Hepatosplenomegaly - outpatient follow up Dispo: d/c tomorrow hopefully Code status: full code
--- NOTE | 2019-06-20 19:32 | ULT ---
Exam: Transabdominal and endovaginal pelvic ultrasound HISTORY:Right lower quadrant pain. Evaluate for pelvic pathology COMPARISON: None TECHNIQUE: Transabdominal and endovaginal imaging of the pelvis is performed. Ovaries are interrogate d with grayscale, color flow, Doppler imaging and spectral wave form analysis FINDINGS: Uterus: No myometrial masses. Uterus measurin.3 x 5.5 x 2.7 cm. Endometrium: Diminutive. Limited evaluation. Endometrium diameter: 0.2 cm. . Free fluid: None Right ovary: Right ovary has a normal echotexture. There is a hypoechoic focus adjacent to the right ovary, measuring 1.0 x 1.0 x 0.9 cm. Possibility of a exophytic complex paraovarian cyst is raised. Right ovary measurement: 2.6 x 2.0 x 2.2 cm Left ovary: Cortical hypoechoic focus within the left ovary may represent a complex follicle measurin g 1.7 x 1. X 1.9 cm Left ovary measurements: 3.7 x 1.7 x 2.6 cm Ovarian Doppler: There is vascular flow to the left and right ovary. IMPRESSION: 1. Unremarkable uterus and endometrium. Limited evaluation the endometrium. Obvious pathology. 2. Hypoechoic foci in the left and right adnexa which are presumed to be of ovarian origin. Complex c yst/follicle may be present. Follow-up ultrasound in 6 weeks to ensure resolution.
[2019-06-20] MEDS: Ketorolac Tromethamine 30 MG/ML VIAL IVP PRN (20:29)
[2019-06-20] MEDS: traZODone HCl 50 MG TAB PO SCH (20:57)
[2019-06-20] MEDS: Insulin Glargine 40 UNITS in Pre-Filled Syringe 1 EACH SC SCH (20:58)
[2019-06-20] MEDS: cefTRIAXone\\ROCEPHIN 1 GM in Sodium Chloride 0.9% 100 ML IVPB SCH (20:59)
[2019-06-20] MEDS: Bisacodyl 5 MG TAB PO PRN (23:35)
[2019-06-21] MEDS: Lidocaine Patch Removal 1 EACH TOP SCH (02:43)
[2019-06-21] MEDS: Sodium Chloride 0.9% 1,000 ML IV SCH ×3 (02:43→21:06)
[2019-06-21] MEDS: HYDROcodone/Acetaminophen 10/325 mg Tablet PO PRN ×5 (05:36→22:39)
[2019-06-21 06:02] LABS: #Eosinphils 0.1 thou/uL (0.0-0.7); #Lymphocytes 2.1 thou/uL (1.20-3.40); #Monocytes 0.2 thou/uL (0.11-0.59); #Neutrophils 2.3 thou/uL (1.40-6.50); %Basophils 0.2 % (0.0-1.0); %Eosinophils 1.6 % (0.0-10.0); %Monocytes 4.8 % (0.0-10.0); %Neutrophils 48.3 % (42.0-75.0); Hemoglobin 9.6 g/dL (12.0-16.0); Mean Corpuscular HGB CONC 31.4 g/dL (32.0-36.0); Mean Corpuscular Hemoglobin 28.8 pg (27.0-31.0); Mean Corpuscular Volume 91.6 fL (78.0-98.0); Mean Platelet Volume 8.7 fL (7.4-10.4); Platelet Count 155 thou/uL (130-400); RBC Distribution Width 11.7 % (11.5-14.5); Red Blood Cell (RBC) Count 3.33 mill/uL (4.20-5.40); White Blood Cell (WBC) Count 4.7 thou/uL (4.8-10.8)
[2019-06-21 06:17] LABS: Anion Gap 11 mmol/L (10-20); BUN (Urea Nitrogen) 13 mg/dL (7.0-18.7); Calc. Creatinine Clearance 237 mL/min (70-130); Calcium 8.1 mg/dL (7.8-10.44); Carbon Dioxide 23 mmol/L (22-29); Chloride 108 mmol/L (98-107); Estimated GFR-MDRD 88; Glucose 174 mg/dL (70-105); Potassium 4.2 mmol/L (3.5-5.1); Sodium 138 mmol/L (136-145)
[2019-06-21] MEDS: Ketorolac Tromethamine 30 MG/ML VIAL IVP PRN (08:48)
[2019-06-21] MEDS: Phenazopyridine HCl 97.5 MG TABLET PO SCH ×3 (08:53→20:26)
[2019-06-21] MEDS: Dicyclomine 10 MG CAP PO SCH ×4 (08:53→20:24)
[2019-06-21] MEDS: Tamsulosin HCl 0.4 MG CAP PO SCH (08:53)
[2019-06-21] MEDS: Folic Acid 1 MG TAB PO SCH (08:53)
[2019-06-21] MEDS: Oxybutynin 5 MG TAB PO SCH ×3 (08:53→20:26)
[2019-06-21] MEDS: Senokot S 8.6-50 MG TAB PO SCH ×2 (08:53→20:26)
[2019-06-21] MEDS: Enoxaparin Sodium 40 MG/0.4 ML SYRINGE SC SCH (08:56)
[2019-06-21] MEDS: Polyethylene Glycol 3350 17 GM Packet PO SCH (08:56)
[2019-06-21] MEDS: Alogliptin 25 MG TAB PO SCH (09:11)
--- NOTE | 2019-06-21 10:31 | ULT ---
RENAL ULTRASOUND DOPPLER STUDY: Doty scale images of both kidneys along with renal artery evaluation with color Doppler and spectral analysis. INDICATION: Flank pain. Assess renal artery and vein thrombosis. FINDINGS: Right kidney measures 11.1 cm length. Left kidney measures 11.1 cm length. No hydronephrosis. Echo genic foci are seen bilaterally consistent with renal calculi which are better demonstrated on CT of 06/16/2019. No hydronephrosis. Doppler studies: Right renal artery/aortic ratio: 0.43. Right renal arcuate renal artery resistive index: Distal: 0.80. Mid: 0.79 mid. Proximal: 0.80. Left renal artery/aortic ratio: 0.42. Left renal arcuate renal artery resistive index: Proximal 0.70. Mid: 0.67. Distal: 0.71. Renal vein not adequately evaluated on this exam. Contrast-enhanced CT with a portal venous and delayed venous phase could be performed to assess venou s patency if indicated. POS: C
[2019-06-21] MEDS ORDERED: Midazolam HCl 2 mg/2 ml Vial ONE (11:28)
[2019-06-21] MEDS ORDERED: Labetalol HCl 100 MG/20 ML VIAL ONE (11:40)
[2019-06-21] MEDS ORDERED: Morphine 4 MG/ML VIAL SLOW IVP SCH (12:00)
[2019-06-21] MEDS: HumaLOG 300 UNITS/3 ML VIAL SC PRN ×2 (12:48→18:40)
[2019-06-21] MEDS: Lidocaine 5% Patch TD SCH (13:33)
--- NOTE | 2019-06-21 14:09 | PRG ---
DATE OF SERVICE: 06/21/2019 SUBJECTIVE: The patient continues to have severe amounts of flank pain and right lower quadrant pain. It is somewhat better than before, but continues to be fairly significant. She states she is continuing to pass small blood clot. She thinks she may have passed a stone. Previous CT and ultrasounds have not demonstrated hydronephrosis or ureteral calculi, although she does have a few remaining fragments within her kidney. I had spoken with Dr. Jaime, her hospitalist, and we had considered the possible diagnosis of renal vein thrombosis. We have sent her today for a renal ultrasound with Doppler studies to check the renal vein, however, it came to my attention that due to her size, they were not able to adequately visualize the renal vein. She has not had any fevers. She continues to urinate normally, although she states it is infrequent and it continues to be bloody. She is still on antibiotics. OBJECTIVE: VITAL SIGNS: Temperature 98.1, pulse 87, respirations 18, blood pressure 142/82, saturation 95% on room air. GENERAL: No apparent distress, communicating appropriately, but stating she is in a lot of pain. CARDIOVASCULAR: Regular rate and rhythm. CHEST: No increased work of breathing. ABDOMEN: Morbidly obese, difficult for palpation of internal organs, but significant tenderness on her right flank, right CVA tenderness, right lower quadrant tenderness without rebound or guarding. Minimal left-sided tenderness. EXTREMITIES: No clubbing, cyanosis, or edema. LABORATORY EVALUATION: The full set of labs is in the [facility] system, which I have reviewed. Of note, the patient's white count is 4.7, hemoglobin 9.6. Creatinine 0.74. Abdominal and pelvic ultrasounds with Doppler demonstrated no hydronephrosis with no abnormal renal artery resistive indices. The renal vein was not adequately evaluated and a CT was recommended. ASSESSMENT AND PLAN: A 38-year-old white female with continued and ongoing right flank pain and right lower quadrant pain, which is not well explained. She does not have hydronephrosis to explain a ureteral stone. Prior CT had not demonstrate any ureteral calculi. It is possible that she was passing blood clots in her ureter which can cause pain, but generally these produce hydronephrosis which actually results in the pain, which is not being seen on imaging. I am starting to consider that she could potentially have a renal vein thrombosis, although this would be very rare. Other potential causes could be musculoskeletal or neuropathic type origins of her pain, although this would not be potentially well explained by her recent procedure. At this time, I am somewhat confused as to her symptoms as to why she is experiencing as much pain as she is as her laboratory findings are not necessarily consistent, nor her imaging findings consistent. We will wait to evaluate for the renal vein thrombosis and Dr. Jaime had discussed starting her on nerve modulating agents and other things that may assist in her pain beside narcotics. I will continue to follow along and make recommendations as possible. Job ID: [id number]
--- NOTE | 2019-06-21 14:10 | CT ---
CTA of the abdomen and pelvis with and without IV contrast utilizing 3 reformatted imaging INDICATION: Concern for renal vein thrombosis and renal artery thrombosis FINDINGS: Renal arteries and renal veins are patent. No hydronephrosis is demonstrated. There is a stable 6 mm calculus involving the inferior pole of the left kidney. There is a stable 5 mm calculus involving inferior pole of the right kidney. The celiac, SMA and SOFY arteries are patent. The common iliac and iliac bifurcations are patent. The left and right common femoral arteries are patent. The femoral bifurcations are patent. The liver measures 26 cm in length. The spleen measures 15.6 cm. The gallbladder surgically absent. P ancreas and adrenal glands are unremarkable appearing. No free fluid is evident. There is a moderate amount retained stool within colon. The bladder, reproductive structures, rectum and perirec sivan soft tissues are unremarkable appearing. No acute osseous abnormality is evident. There are bilateral pars defects at L5 without anterolisthes is. IMPRESSION: 1. The renal arteries and renal veins are patent. 2. Bilateral nephrolithiasis 3. Hepatosplenomegaly 4. Bilateral pars defects at L5
[2019-06-21] MEDS: Ketorolac Tromethamine 10 MG TAB PO PRN (18:19)
--- NOTE | 2019-06-21 18:41 | PDOC.HOSPP ---
- Subjective Encounter Date: 06/21/19 Encounter Time: 10:30 Subjective: The patient was doing well, trying to avoid IV medications. HOwever during ultrasound she got severe pain and got one dose of IV morphine. She also got IV toradol this morning. She believes she passed a stone this morning but flushed the toilet so she is angry about it. She states it was maroon in color. Also passed some blood clots. Bentyl is helping. Patient is allergic to gabapentin Urine output diminished per patient. - Objective Vital Signs & Weight: Vital Signs (12 hours) Temp Pulse Resp BP Pulse Ox 06/21/19 17:15 98 F 85 16 131/81 96 06/21/19 11:39 98.1 F 87 18 142/82 H 95 06/21/19 09:05 98.0 F 80 18 170/88 H 96 06/21/19 08:00 96 Weight Weight 321 lb 5 oz I&O: 06/20/19 06/21/19 06/22/19 06:59 06:59 06:59 Intake Total 2740 2710 1410 Balance 2740 2710 1410 Result Diagrams: 06/21/19 05:27 06/21/19 05:27 Additional Labs: Accuchecks 06/21/19 06/21/19 06/21/19 17:18 11:42 05:29 POC Glucose 208 H 184 H 171 H 06/20/19 20:19 POC Glucose 252 H Hospitalist ROS - Review of Systems Constitutional: denies: fever, chills - Medication Medications: Active Medications Generic Name Dose Route Start Last Admin Trade Name Freq PRN Reason Stop Dose Admin Acetaminophen 650 mg 06/15/19 23:32 06/17/19 21:20 Tylenol PO 650 mg Q4H PRN Administration Headache/Fever/Mild Pain (1-3) Hydrocodone Bitart/Acetaminophen 2 tab 06/19/19 14:27 06/21/19 18:20 [place] 10/325 PO 2 tab Q4H PRN Administration PAIN SCALE 5-10 Alogliptin Benzoate 25 mg 06/16/19 09:00 06/21/19 09:11 Alogliptin PO 25 mg DAILY RY Administration Bisacodyl 10 mg 06/15/19 23:32 06/20/19 23:35 Dulcolax PO 10 mg DAILYPRN PRN Administration Constipation Dicyclomine HCl 10 mg 06/20/19 13:00 06/21/19 17:20 Bentyl PO 10 mg QID RY Administration Enoxaparin Sodium 40 mg 06/18/19 09:00 06/21/19 08:56 Lovenox SC 40 mg 0900 RY Administration Folic Acid 1 mg 06/20/19 09:00 06/21/19 08:53 Folvite PO 1 mg DAILY RY Administration Hyoscyamine Sulfate 0.125 mg 06/16/19 16:58 06/21/19 18:19 Levsin PO 0.125 mg Q4H PRN Administration Bladder Spasms Promethazine HCl 12.5 mg/ 50.5 mls @ 202 mls/hr 06/15/19 23:18 06/18/19 08:53 Sodium Chloride IVPB 50.5 mls Q6H PRN Administration Nausea/vomiting, use second Insulin Glargine 40 units/ 0.4 mls @ 0 mls/hr 06/16/19 21:00 06/20/19 20:58 Miscellaneous Medication SC 0.4 mls HS RY Administration Ceftriaxone Sodium 1 gm/ 100 mls @ 200 mls/hr 06/16/19 21:00 06/20/19 20:59 Sodium Chloride IVPB 06/29/19 21:29 100 mls Q24HR RY Administration Sodium Chloride 1,000 mls @ 50 mls/hr 06/21/19 01:19 06/21/19 16:06 Normal Saline 0.9% IV 1,000 mls .Q20H RY Administration Insulin Human Lispro 0 units 06/16/19 00:12 06/21/19 12:48 Humalog SC 2 unit .MODERATE SLIDING SC PRN Administration Moderate Correctional Scale Ketorolac Tromethamine 30 mg 06/20/19 16:56 06/21/19 08:48 Toradol IVP 06/25/19 16:57 30 mg Q6H PRN Administration Severe Pain (7-10) Ketorolac Tromethamine 10 mg 06/20/19 16:56 06/21/19 18:19 Toradol PO 06/25/19 16:57 10 mg Q6H PRN Administration Moderate Pain (4-6) Lidocaine 1 patch 06/17/19 13:25 06/21/19 13:33 Lidoderm 5% Patch TD 1 patch Q24HR RY Administration Miscellaneous Medication 1 each 06/18/19 01:25 06/21/19 02:43 Lidocaine Patch Removal TOP Not Given Q24HR RY Ondansetron HCl 4 mg 06/15/19 23:18 06/19/19 00:02 Zofran IVP 4 mg Q6H PRN Administration Nausea/Vomiting, use 1st Oxybutynin Chloride 5 mg 06/16/19 09:00 06/21/19 15:58 Ditropan PO 5 mg TID RY Administration Pantoprazole Sodium 40 mg 06/16/19 09:00 06/21/19 08:53 Protonix PO 40 mg DAILY RY Administration Phenazopyridine HCl 97.5 mg 06/16/19 09:00 06/21/19 15:58 Azo Standard PO 97.5 mg TID RY Administration Polyethylene Glycol 17 gm 06/16/19 09:00 06/21/19 08:56 Miralax PO 17 gm DAILY RY Administration Senna/Docusate Sodium 1 tab 06/16/19 09:00 06/21/19 08:53 Senokot S PO 1 tab BID RY Administration Tamsulosin HCl 0.4 mg 06/16/19 09:00 06/21/19 08:53 Flomax PO 0.4 mg DAILY RY Administration Trazodone HCl 100 mg 06/16/19 21:00 06/20/19 20:57 Desyrel PO 100 mg HS RY Administration - Exam General Appearance: NAD, awake alert Eye: PERRL, anicteric sclera ENT: normocephalic atraumatic, no oropharyngeal lesions Neck: supple, symmetric, no JVD Heart: RRR, no murmur, no gallops, no rubs Respiratory: CTAB, no wheezes, no rales, no ronchi Gastrointestinal: soft Gastrointestinal - other findings: CVA tenderness on right Extremities: no cyanosis, no clubbing, no edema Skin: normal turgor, no lesions, no rashes Neurological: cranial nerve grossly intact, normal sensation to touch, no focal deficits, no new deficit Hosp A/P - Plan CT abdomen: bilateral nonobstructing intrarenal calculi. Stone burden on the right has decreased significantly. Stable hepatosplenomegaly with probable hepatic steatosis. Renal ultrasound: right hydronephrosis Renal ultrasound 06/19 : resolution of hydronephrosis. 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 Hepatosplenomegaly. Patent renal arteries and renal veins US PELvic transvaginal: unremarkable uterus and endometrium. Exophytic complex paraovarian cyst 1.0 cm. Complex follicle left adnexa This is 38 year old female who presented with COPD, kidney stone, T2DM who presented with right flank pain after having a stent removed. #Kidney stone s/p stent removal #Bladder spasms - right hydronephrosis appears to have resolved on CT abdomen with stone burden decreased. Repeat renal ultrasound 06/17 shows mild right hydronephrosis . Renal ultrasound 06/19 shows resolution of hydronephrosis - on IV ceftriaxone day 5. Urine culture normal, but this was after antibiotics received. Switch to po on discharge, treat for 7 days - continue bentyl prn for pain - continue toradol po prn for pain - will add lyrica. Patient is allergic to gabapentin. Continue lidocaine patch - d/c IV fentanyl prn - continue oral narcotics prn per pain management - continue phenopydine, levsin prn, add glendy yan suppository bid prn - needs to ambulate and ordered PTOT Physical deconditioning - needs PT Possible bilateral ovarian cyst - noted on pelvic US. Needs outpatient ultrasound in 6 weeks Hypomagnesemia - resolved Folate deficiency Anemia - Hb 11 - iron panel unremarkable - started folic acid Fatty liver/Hepatosplenomegaly - outpatient follow up Dispo: d/c tomorrow hopefully Code status: full code
[2019-06-21] MEDS: Insulin Glargine 40 UNITS in Pre-Filled Syringe 1 EACH SC SCH (20:21)
[2019-06-21] MEDS: cefTRIAXone\\ROCEPHIN 1 GM in Sodium Chloride 0.9% 100 ML IVPB SCH (20:22)
[2019-06-21] MEDS: Bisacodyl 5 MG TAB PO PRN (20:24)
[2019-06-21] MEDS: traZODone HCl 50 MG TAB PO SCH (20:26)
[2019-06-21] MEDS ORDERED: Amitriptyline HCl 10 MG TAB PO SCH (21:00)
[2019-06-21] MEDS ORDERED: Furosemide 20 MG/2 ML VIAL SLOW IVP SCH (22:30)
[2019-06-22] MEDS: Lidocaine Patch Removal 1 EACH TOP SCH (02:06)
[2019-06-22] MEDS: Ketorolac Tromethamine 30 MG/ML VIAL IVP PRN (02:39)
[2019-06-22] MEDS: HYDROcodone/Acetaminophen 10/325 mg Tablet PO PRN ×5 (02:41→18:26)
[2019-06-22 06:01] LABS: #Eosinphils 0.1 thou/uL (0.0-0.7); #Lymphocytes 1.9 thou/uL (1.20-3.40); #Monocytes 0.2 thou/uL (0.11-0.59); #Neutrophils 2.5 thou/uL (1.40-6.50); %Basophils 0.4 % (0.0-1.0); %Eosinophils 2.3 % (0.0-10.0); %Lymphocytes 39.5 % (21.0-51.0); %Neutrophils 52.7 % (42.0-75.0); Hemoglobin 9.5 g/dL (12.0-16.0); Mean Corpuscular HGB CONC 34.4 g/dL (32.0-36.0); Mean Corpuscular Hemoglobin 31.4 pg (27.0-31.0); Mean Corpuscular Volume 91.5 fL (78.0-98.0); Mean Platelet Volume 8.2 fL (7.4-10.4); Platelet Count 144 thou/uL (130-400); RBC Distribution Width 11.8 % (11.5-14.5); Red Blood Cell (RBC) Count 3.03 mill/uL (4.20-5.40); White Blood Cell (WBC) Count 4.7 thou/uL (4.8-10.8)
[2019-06-22 06:22] LABS: Anion Gap 10 mmol/L (10-20); BUN (Urea Nitrogen) 13 mg/dL (7.0-18.7); Calc. Creatinine Clearance 211 mL/min (70-130); Calcium 8.5 mg/dL (7.8-10.44); Carbon Dioxide 26 mmol/L (22-29); Chloride 107 mmol/L (98-107); Estimated GFR-MDRD 77; Glucose 203 mg/dL (70-105); Sodium 139 mmol/L (136-145)
[2019-06-22] MEDS: HumaLOG 300 UNITS/3 ML VIAL SC PRN ×2 (06:43→13:00)
[2019-06-22 08:20] VITALS: BP 107/62; TEMP 98.2
[2019-06-22] MEDS: Tamsulosin HCl 0.4 MG CAP PO SCH (08:44)
[2019-06-22] MEDS: Dicyclomine 10 MG CAP PO SCH ×3 (08:44→17:36)
[2019-06-22] MEDS: Senokot S 8.6-50 MG TAB PO SCH (08:44)
[2019-06-22] MEDS: Oxybutynin 5 MG TAB PO SCH ×2 (08:44→14:25)
[2019-06-22] MEDS: Polyethylene Glycol 3350 17 GM Packet PO SCH (08:44)
[2019-06-22] MEDS: Folic Acid 1 MG TAB PO SCH (08:44)
[2019-06-22] MEDS: Phenazopyridine HCl 97.5 MG TABLET PO SCH ×2 (08:44→14:25)
[2019-06-22] MEDS: Enoxaparin Sodium 40 MG/0.4 ML SYRINGE SC SCH (08:57)
[2019-06-22] MEDS: Ketorolac Tromethamine 10 MG TAB PO PRN (10:19)
[2019-06-22] MEDS: Alogliptin 25 MG TAB PO SCH (10:19)
[2019-06-22] MEDS: Lidocaine 5% Patch TD SCH (13:06)
--- NOTE | 2019-06-22 22:39 | DIS ---
DATE OF ADMISSION: 06/15/2019 DATE OF DISCHARGE: 06/22/2019 DISCHARGE DIAGNOSES: Right-sided hydronephrosis, severe flank pain status post right ureteroscopy, laser lithotripsy, basket extraction of stones, and placement of a 6 x 26 double-J stent. Possible pyelonephritis, bladder spasms; bilateral ovarian cysts, hypomagnesemia, folate deficiency anemia, fatty liver/ hepatosplenomegaly. CONSULTATIONS: Urology with Dr. Stephen Ibarra, Dr. Bernabe Uribe, and Pain Management/Anesthesia. BRIEF HISTORY OF PRESENT ILLNESS: This is a 38-year-old female with a past medical history of hearing impairment, COPD, kidney stone, type 2 diabetes, who presented to the emergency room with right flank pain. The patient had a urinary stent placed for a kidney stone. On the , she underwent right ureteroscopy, laser lithotripsy, basket extraction of stones and placement of a 6 x 26 double-J stent. Her stent was removed the day prior to admission. The patient had reported severe spasms upon presentation to the ER. UA showed 21-50 white blood cells, turbid urine. She was started on IV ceftriaxone empirically in the ER. The patient also was requiring excessive amounts of morphine with up to 20 mg in the ER. The patient was started on a morphine HADOOP CONSULTANT on admission. HOSPITAL COURSE: Severe abdominal pain status post stent removal/right-sided hydronephrosis: The patient was empirically started on IV ceftriaxone; however, urine culture was not done prior to antibiotics, so urine culture came back normal. She did receive IV ceftriaxone for 6 days in the hospital and we discharged with cefdinir for one more day to complete a 7-day course of antibiotics. The patient's pain was extremely difficult to manage in the hospital. She was on a morphine HADOOP CONSULTANT for multiple days. She was weaned off morphine HADOOP CONSULTANT and transitioned to oral narcotics by Anesthesia. The patient had a renal ultrasound on the , which showed right-sided hydronephrosis. Due to persistent pain and decreased urine output, repeat renal ultrasound on the showed mild right hydronephrosis and repeat ultrasound on the showed no hydronephrosis, but stable bilateral nephrolithiasis. In addition, CT scan of her abdomen done on the had showed bilateral nonobstructing intrarenal calculi , mild stranding of fat adjacent to the right ureters signifying a recently passed stone. However, there was decreased stone burden and no significant hydronephrosis. The patient was started on Levsin p.r.n. for bladder spasms, belladonna suppository, oxybutynin t.i.d., and was also taking Toradol p.r.n. for pain. She was also started on dicyclomine q.i.d. for abdominal cramps. The patient continued to have significant pain in the right CVA area on discharge, however, she was able to tolerate a diet without any nausea or vomiting and was able to tolerate oral pain medications, so she felt comfortable going home. The patient also had a pelvic ultrasound which showed bilateral ovarian cysts. She needs outpatient followup with a repeat ultrasound in 6 weeks. She also had a CTA of her abdomen which showed no renal or arterial vein thrombosis. The patient should follow up with her PCP in a week. She follow up with Dr. Ibarra in 2-3 weeks. Folate deficiency anemia: The patient was noted to have a low folate level. She was started on folic acid supplements. Bilateral ovarian cyst: This was noted on transvaginal pelvic ultrasound. It was noted to be about 1 cm in size bilaterally. She needs repeat ultrasound in 6 weeks. Abdominal tightness: The patient had reported to the night physician on the that she felt her skin was tight and she had decreased urine output. She was given 20 mg IV Lasix and per the patient, she felt that her urine output and her skin tightness had improved. The patient did not appear to have a firm abdomen on the day of discharge. Her lung sounds were clear. Imaging studies also have showed known edema. However, per the patient's request, we will discharge with Lasix for 4 days. DISCHARGE PHYSICAL EXAMINATION: VITAL SIGNS: Temperature 98.2, heart rate 84, respiratory rate 20, O2 saturation 93% on room air, blood pressure 107/62. GENERAL: The patient is morbidly obese. She is alert, awake, oriented x3. CVS: Regular rate and rhythm with no murmurs, rubs, or gallops. LUNGS: Clear to auscultation bilaterally. ABDOMEN: The patient has CVA tenderness on the right. Abdomen is soft otherwise and overall nontender. EXTREMITIES: No edema. PERTINENT LABORATORY DATA: CBC: White count 4.7, hemoglobin 9.5/27.7. BMP on 06/22: was unremarkable. Iron panel shows a low TIBC of 234, normal iron level, normal iron saturation, normal ferritin. LFTs; AST 29, ALT 31, alkaline phosphatase 75. Vitamin B12: of 444. Folate is 6.90. UA; 21-50 white blood cells, 100 protein, turbid urine. Urine culture: no growth. PERTINENT IMAGING STUDIES: Renal ultrasound on 06/15: shows mild right-sided hydronephrosis. Renal ultrasound on 06/17: shows no interval change in mild right hydronephrosis. Renal ultrasound on 06/19: no hydronephrosis. Stable bilateral nephrolithiasis. Abdominal/pelvis ultrasound on 06/21L no renal or arterial vein thrombosis. CTA abdomen and pelvis on 06/21: bilateral nephrolithiasis. Hepatosplenomegaly. 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 CT abdomen and pelvis on 06/16: numerous subcentimeter nonobstructing stones in the lower pole of the left kidney. Stable splenomegaly. Hepatomegaly. DISCHARGE INSTRUCTIONS: The patient should follow up with her PCP in a week and Dr. Ibarra in 2-3 weeks. She should take cefdinir for one more day to complete a 7 -day course of antibiotics. She can take hyoscyamine, Ketoralac, dicyclomine as needed for pain. DISCHARGE MEDICATIONS: 1. Cefdinir 300 mg p.o. q.12 hours for one day 2. Bentyl 10 mg p.o. q.i.d. 3. Folic acid 1 mg p.o. daily. 4. Furosemide 20 mg p.o. q.a.m. 5. Hyoscyamine 0.125 mg p.o. q.4 hours p.r.n. 6. Ketoralac 10 mg p.o. q.6 hours p.r.n. 7. MiraLAX 17 g p.o. daily p.r.n. 8. All other home medications were resumed. Job ID: [id number] [facility]
--- NOTE | 2019-06-25 02:00 | PQF ---
JEFFKATHLEEN MARLINE, RADHA [id number] CLINICAL DOCUMENTATION CLARIFICATION FORM: POST DISCHARGE Addendum to original discharge summary date: ____ Late entry note date: __ DATE: 06/25/2019 ATTN: Radha Lott Please exercise your independent, professional judgment in responding to the clarification form. Clinical indicators are provided on the bottom of this form for your review In your clinical opinion based on clinical findings below, can you please identify the etiology of Flank pain if due to: Please check appropriate box(s): [ x ] Genitourinary Postoperative complication of Stent Removal [ x ] Hydronephrosis with Pyelonephritis [ ] Other diagnosis [ ] Unable to determine In addition, please specify: Present on Admission (POA): [ x ] Yes [ ] No [ ] Unable to determine For continuity of documentation, please document condition throughout progress notes and discharge summary. Thank You. CLINICAL INDICATORS - SIGNS / SYMPTOMS / LABS Hospitalist H&P p1 06/15 Dr Dumont Patient had a urinary stent placed for kidney stone which was removed yesterday ever since has developed severe flank pain not responding to large doses pain meds Hospitalist H&P p1 06/15 Dr Dumont Pain currently 01/06 Hospitalist H&P p1 06/15 Dr Dumont In ED, labs suggestive of urinary infection, CVA tenderness noted, cultured ordered, patient to be admitted for intractable pain and likely pyelonephritis Hospitalist H&P p1 06/15 Dr Dumont Renal US showed R hydronephrosis [employer] Hospitalist H&P p5 06/15 - R Pyelonephritis Hospitalist H&P p5 06/15 - R Hydronephrosis Hospitalist H&P p5 06/15 - s/p removal of stent TREATMENTS: Urologist Consult 06/16 Bernabe Liu JUL 28 IV Ceftriaxone JUL 28 Toradol JUL 28 Morphine Sulfate JUL 28 Flomax JUL 28 IV Fentanyl (This form is maintained as a part of the permanent medical record) 2014 [employer]. All Rights Reserved [email or web address]
== END 2019-06-22 19:19 | disposition home or self-care (01) | DRG 699 ==
LOC: ERS 15:21 → ONC 21:42 → OBSVTOIN 21:42 → T4-B 06-18 22:31
PROVIDERS: ADMIT Internal Medicine; ATTEND Internal Medicine
DX: N99.89 Other postprocedural complications and disorders of genitourinary system (principal); N13.6 Pyonephrosis; Z68.43 Body mass index [BMI] 50.0-59.9, adult; N83.202 Unspecified ovarian cyst, left side; N83.201 Unspecified ovarian cyst, right side; E83.42 Hypomagnesemia; D52.9 Folate deficiency anemia, unspecified; K76.0 Fatty (change of) liver, not elsewhere classified; J44.9 Chronic obstructive pulmonary disease, unspecified; H90.5 Unspecified sensorineural hearing loss; E66.9 Obesity, unspecified; Y84.8 Other medical procedures as the cause of abnormal reaction of the patient, or of later complication, without mention of misadventure at the time of the procedure; Z87.442 Personal history of urinary calculi; Z90.49 Acquired absence of other specified parts of digestive tract; Z85.41 Personal history of malignant neoplasm of cervix uteri; Z88.0 Allergy status to penicillin; Z88.8 Allergy status to other drugs, medicaments and biological substances
CPT/HCPCS: 36415; 36416; 74174; 74176; 76770; 76775; 76856; 80048; 80053; 81003; 81015; 81025; 82607; 82728; 82746; 83540; 83550; 83735; 83880; 85025; 85027; 87086; 93975; 96361; 96365; 96375; 96376; J0696; J1650; J1815; J1885; J1940; J2250; J2270; J2405; J2550; J3010; J3475; J3490; J7070

== ENCOUNTER 2020-08-10 00:23 | Emergency (ER) | payer OTHER ==
[2020-08-10 01:38] LABS: #Eosinphils 0.1 thou/uL (0.0-0.7); #Lymphocytes 3.3 thou/uL (1.20-3.40); #Monocytes 0.4 thou/uL (0.11-0.59); #Neutrophils 5.4 thou/uL (1.40-6.50); %Basophils 0.4 % (0.0-1.0); %Eosinophils 1.1 % (0.0-10.0); %Monocytes 4.2 % (0.0-10.0); %Neutrophils 58.3 % (42.0-75.0); Hemoglobin 14.1 g/dL (12.0-16.0); Mean Corpuscular HGB CONC 36.1 g/dL (32.0-36.0); Mean Corpuscular Hemoglobin 32.3 pg (27.0-31.0); Mean Corpuscular Volume 89.4 fL (78.0-98.0); Mean Platelet Volume 7.9 fL (7.4-10.4); Platelet Count 259 thou/uL (130-400); RBC Distribution Width 11.6 % (11.5-14.5); Red Blood Cell (RBC) Count 4.37 mill/uL (4.20-5.40); White Blood Cell (WBC) Count 9.2 thou/uL (4.8-10.8)
[2020-08-10] MEDS ORDERED: Ketorolac Tromethamine 30 MG/ML VIAL ONE (01:38)
[2020-08-10] MEDS ORDERED: Ondansetron ODT 8 MG TAB ONE (01:38)
[2020-08-10 01:45] LABS: Bilirubin Negative (Negative); Blood, Urine Negative (Negative); Clarity Clear (Clear); Glucose, Urine (Dipstick) Greater than 1000 mg/dL (Negative); Ketone, Urine Trace mg/dL (Negative); Leukocyte Negative Leu/uL (Negative); Nitrite Negative (Negative); Protein, Urine (Dipstick) 10 mg/dL (Neg-Trace); Specific Gravity, Urine 1.041 (1.002-1.036); Urobilinogen Normal mg/dL (Less than 2)
[2020-08-10 01:46] LABS: Pregnancy Test - Urine (BHCG) Negative (Negative); Pregu Control Background? CLEAR/WHITE (CLR/WHITE); Pregu Control Bar Appear? YES (CONTROL BAR); Specific Gravity 1.041 (1.002-1.036)
[2020-08-10 03:00] LABS: ALT (SGPT) 38 U/L (8-55); AST (SGOT) 38 U/L (5-34); Albumin 4.4 g/dL (3.5-5.0); Alkaline Phosphatase 124 U/L (40-110); Anion Gap 20 mmol/L (10-20); BUN (Urea Nitrogen) 14 mg/dL (7.0-18.7); Bilirubin, Total 0.3 mg/dL (0.2-1.2); Calc. Creatinine Clearance 0 mL/min (70-130); Calcium 9.5 mg/dL (7.8-10.44); Carbon Dioxide 23 mmol/L (22-29); Chloride 98 mmol/L (98-107); Globulin 3.9 g/dL (2.4-3.5); Glucose 402 mg/dL (70-105); Lipase 44 U/L (8-78); Potassium 4.5 mmol/L (3.5-5.1); Protein, Total 8.3 g/dL (6.0-8.3); Sodium 136 mmol/L (136-145)
[2020-08-10] MEDS ORDERED: Insulin Regular 300 UNITS/3 ML VIAL ONE (03:54)
[2020-08-10] MEDS ORDERED: Insulin Glargine 50 UNITS in Pre-Filled Syringe 1 EACH SC SCH (04:00)
== END 2020-08-10 04:18 | disposition home or self-care (01) ==
LOC: ERS 00:23
DX: E11.65 Type 2 diabetes mellitus with hyperglycemia (principal); E66.9 Obesity, unspecified; J45.909 Unspecified asthma, uncomplicated; Z87.891 Personal history of nicotine dependence; Z79.4 Long term (current) use of insulin
CPT/HCPCS: 36415; 36416; 80053; 81003; 81025; 83690; 85025; 96372; 99284; J1815; J1885; Q0162

== ENCOUNTER 2020-09-04 19:28 | Emergency (ER) | payer MEDICAID, SELFPAY ==
[~2020-09-04 19:28] MED LIST: Iopamidol-370 76% 500 ML 1 ML ONE
[2020-09-04 20:41] LABS: #Eosinphils 0.1 thou/uL (0.0-0.7); #Lymphocytes 2.4 thou/uL (1.20-3.40); #Monocytes 0.4 thou/uL (0.11-0.59); #Neutrophils 5.6 thou/uL (1.40-6.50); %Basophils 0.3 % (0.0-1.0); %Eosinophils 1.7 % (0.0-10.0); %Lymphocytes 27.7 % (21.0-51.0); %Monocytes 4.4 % (0.0-10.0); %Neutrophils 65.9 % (42.0-75.0); Mean Corpuscular HGB CONC 34.6 g/dL (32.0-36.0); Mean Corpuscular Hemoglobin 30.5 pg (27.0-31.0); Mean Corpuscular Volume 87.9 fL (78.0-98.0); Mean Platelet Volume 8.1 fL (7.4-10.4); Platelet Count 225 thou/uL (130-400); RBC Distribution Width 11.5 % (11.5-14.5); Red Blood Cell (RBC) Count 4.26 mill/uL (4.20-5.40); White Blood Cell (WBC) Count 8.5 thou/uL (4.8-10.8)
[2020-09-04 20:49] LABS: ALT (SGPT) 30 U/L (8-55); AST (SGOT) 35 U/L (5-34); Albumin 4.1 g/dL (3.5-5.0); Alkaline Phosphatase 118 U/L (40-110); Anion Gap 17 mmol/L (10-20); BUN (Urea Nitrogen) 18 mg/dL (7.0-18.7); Bilirubin, Total 0.3 mg/dL (0.2-1.2); CK (CPK) 93 U/L (29-168); Calc. Creatinine Clearance 0 mL/min (70-130); Calcium 8.9 mg/dL (7.8-10.44); Carbon Dioxide 25 mmol/L (22-29); Chloride 96 mmol/L (98-107); Globulin 3.5 g/dL (2.4-3.5); Glucose 452 mg/dL (70-105); Lipase 56 U/L (8-78); Potassium 4.1 mmol/L (3.5-5.1); Protein, Total 7.6 g/dL (6.0-8.3); Sodium 134 mmol/L (136-145)
[2020-09-04] MEDS ORDERED: Ondansetron PF 4 MG/2 ML Vial ONE (20:59)
[2020-09-04] MEDS ORDERED: Morphine 4 MG/ML VIAL ONE (20:59)
[2020-09-04 22:26] LABS: Bacteria/HPF None Seen HPF (None Seen); Bilirubin Negative (Negative); Blood, Urine 2+ (Negative); Clarity Turbid (Clear); Glucose, Urine (Dipstick) Greater than 1000 mg/dL (Negative); Ketone, Urine Negative (Negative); Leukocyte Negative Leu/uL (Negative); Nitrite Negative (Negative); Protein, Urine (Dipstick) 10 mg/dL (Neg-Trace); Specific Gravity, Urine 1.037 (1.002-1.036); Squamous Epithelial 0-3 HPF (0-3); Urobilinogen Normal mg/dL (Less than 2); WBC/HPF 0-3 HPF (0-3)
[2020-09-04] MEDS ORDERED: diphenhydrAMINE 50 MG/ML VIAL ONE (22:33)
== END 2020-09-04 23:03 | disposition home or self-care (01) ==
LOC: ERS 19:28
DX: M62.838 Other muscle spasm (principal); E66.9 Obesity, unspecified; E11.9 Type 2 diabetes mellitus without complications; J44.9 Chronic obstructive pulmonary disease, unspecified; Z87.891 Personal history of nicotine dependence; Z79.4 Long term (current) use of insulin; Z79.899 Other long term (current) drug therapy
CPT/HCPCS: 36415; 71045; 74177; 80053; 81003; 81015; 82550; 83690; 84484; 85025; 85379; 93005; 96374; 96375; J1200; J2270; J2405; Q9967

== ENCOUNTER 2020-10-03 08:24 | Emergency (ER) | payer MEDICAID, SELFPAY ==
[2020-10-03 09:38] LABS: #Basophils 0.1 thou/uL (0.0-0.2); #Eosinphils 0.2 thou/uL (0.0-0.7); #Lymphocytes 2.5 thou/uL (1.20-3.40); #Monocytes 0.4 thou/uL (0.11-0.59); #Neutrophils 4.7 thou/uL (1.40-6.50); %Basophils 0.7 % (0.0-1.0); %Lymphocytes 32.7 % (21.0-51.0); %Monocytes 4.7 % (0.0-10.0); %Neutrophils 59.9 % (42.0-75.0); Hemoglobin 13.3 g/dL (12.0-16.0); Mean Corpuscular Hemoglobin 30.3 pg (27.0-31.0); Mean Corpuscular Volume 89.2 fL (78.0-98.0); Platelet Count 206 thou/uL (130-400); RBC Distribution Width 11.4 % (11.5-14.5); White Blood Cell (WBC) Count 7.8 thou/uL (4.8-10.8)
[2020-10-03 09:53] LABS: ALT (SGPT) 31 U/L (8-55); AST (SGOT) 31 U/L (5-34); Albumin 4.3 g/dL (3.5-5.0); Alkaline Phosphatase 111 U/L (40-110); Anion Gap 15 mmol/L (10-20); BUN (Urea Nitrogen) 19 mg/dL (7.0-18.7); Bilirubin, Total 0.4 mg/dL (0.2-1.2); Calc. Creatinine Clearance 0 mL/min (70-130); Calcium 10.2 mg/dL (7.8-10.44); Carbon Dioxide 28 mmol/L (22-29); Chloride 99 mmol/L (98-107); Globulin 3.9 g/dL (2.4-3.5); Glucose 153 mg/dL (70-105); Potassium 3.7 mmol/L (3.5-5.1); Protein, Total 8.2 g/dL (6.0-8.3); Sodium 138 mmol/L (136-145)
[2020-10-03] MEDS ORDERED: Ondansetron PF 4 MG/2 ML Vial ONE (09:57)
[2020-10-03] MEDS ORDERED: Morphine 4 MG/ML VIAL ONE (09:57)
[2020-10-03] MEDS ORDERED: diphenhydrAMINE 50 MG/ML VIAL ONE (10:15)
[2020-10-03] MEDS ORDERED: methylPREDNISolone Sod Succ/PF 125 MG/2 ML VIAL ONE (10:15)
[2020-10-03] MEDS ORDERED: Iopamidol-370 76% 500 ML 1 ML ONE (11:50)
[2020-10-03] MEDS ORDERED: Fentanyl 100 MCG/2 ML VIAL ONE (11:53)
[2020-10-03 13:30] LABS: Bacteria/HPF None Seen HPF (None Seen); Bilirubin Negative (Negative); Blood, Urine 3+ (Negative); Clarity Clear (Clear); Glucose, Urine (Dipstick) Normal (Negative); Ketone, Urine Negative (Negative); Leukocyte Negative Leu/uL (Negative); Nitrite Negative (Negative); Protein, Urine (Dipstick) Negative (Neg-Trace); RBC/HPF Greater than 50 HPF (0-3); Squamous Epithelial 0-3 HPF (0-3); Urobilinogen Normal mg/dL (Less than 2); WBC/HPF 0-3 HPF (0-3)
[2020-10-03 13:35] LABS: Pregnancy Test - Urine (BHCG) Negative (Negative); Specific Gravity Greater than 1.060 (1.002-1.036); Specific Gravity, Urine Greater than 1.060 (1.002-1.036)
[2020-10-03 13:36] LABS: Pregu Control Background? CLEAR/WHITE (CLR/WHITE); Pregu Control Bar Appear? YES (CONTROL BAR)
== END 2020-10-03 14:27 | disposition home or self-care (01) ==
LOC: ERS 08:24
DX: R10.9 Unspecified abdominal pain (principal); E11.9 Type 2 diabetes mellitus without complications; E66.9 Obesity, unspecified; J44.9 Chronic obstructive pulmonary disease, unspecified; Z87.891 Personal history of nicotine dependence; Z79.4 Long term (current) use of insulin; Z79.899 Other long term (current) drug therapy
CPT/HCPCS: 36415; 74177; 80053; 81003; 81015; 81025; 85025; 96374; 96375; J1200; J2270; J2405; J2930; J3010; Q9967

== ENCOUNTER 2020-10-13 00:01 | Emergency (ER) | payer SELFPAY | END 2020-10-13 00:51 | disposition home or self-care (01) | LOC: ERS 00:01 | DX: R55 Syncope and collapse (principal); R00.2 Palpitations; E66.9 Obesity, unspecified; E11.9 Type 2 diabetes mellitus without complications; J44.9 Chronic obstructive pulmonary disease, unspecified; I10 Essential (primary) hypertension; Z87.891 Personal history of nicotine dependence | CPT/HCPCS: 93005 ==

== ENCOUNTER 2020-10-13 14:23 | Observation (INO) | payer SELFPAY ==
[2020-10-13 15:05] LABS: #Basophils 0.1 thou/uL (0.0-0.2); #Eosinphils 0.1 thou/uL (0.0-0.7); #Lymphocytes 2.5 thou/uL (1.20-3.40); #Monocytes 0.3 thou/uL (0.11-0.59); #Neutrophils 4.3 thou/uL (1.40-6.50); %Basophils 0.7 % (0.0-1.0); %Eosinophils 1.8 % (0.0-10.0); %Lymphocytes 34.5 % (21.0-51.0); %Monocytes 4.5 % (0.0-10.0); %Neutrophils 58.5 % (42.0-75.0); Hemoglobin 14.3 g/dL (12.0-16.0); Mean Corpuscular HGB CONC 34.2 g/dL (32.0-36.0); Mean Corpuscular Volume 87.5 fL (78.0-98.0); Mean Platelet Volume 8.2 fL (7.4-10.4); Platelet Count 227 thou/uL (130-400); RBC Distribution Width 11.4 % (11.5-14.5); Red Blood Cell (RBC) Count 4.77 mill/uL (4.20-5.40); White Blood Cell (WBC) Count 7.3 thou/uL (4.8-10.8)
[2020-10-13 15:25] LABS: ALT (SGPT) 39 U/L (8-55); AST (SGOT) 36 U/L (5-34); Albumin 4.4 g/dL (3.5-5.0); Alkaline Phosphatase 117 U/L (40-110); Anion Gap 19 mmol/L (10-20); BUN (Urea Nitrogen) 14 mg/dL (7.0-18.7); Bilirubin, Total 0.5 mg/dL (0.2-1.2); Calc. Creatinine Clearance 0 mL/min (70-130); Calcium 10.2 mg/dL (7.8-10.44); Carbon Dioxide 19 mmol/L (22-29); Chloride 99 mmol/L (98-107); Globulin 3.9 g/dL (2.4-3.5); Glucose 264 mg/dL (70-105); Potassium 4.1 mmol/L (3.5-5.1); Protein, Total 8.3 g/dL (6.0-8.3); Sodium 133 mmol/L (136-145)
[2020-10-13 16:13] LABS: Anion Gap 17 mmol/L (10-20); BUN (Urea Nitrogen) 14 mg/dL (7.0-18.7); Calc. Creatinine Clearance 0 mL/min (70-130); Carbon Dioxide 22 mmol/L (22-29); Chloride 99 mmol/L (98-107); Glucose 277 mg/dL (70-105); Potassium 4.4 mmol/L (3.5-5.1); Sodium 134 mmol/L (136-145)
[2020-10-13] MEDS ORDERED: Aspirin Chewable 81 MG TAB ONE (16:20)
[2020-10-13] MEDS ORDERED: Dextrose 50% Abboject 50 ML SYRINGE SLOW IVP PRN (18:04)
[2020-10-13] MEDS ORDERED: Acetaminophen 325 MG TAB PO PRN (18:04)
[2020-10-13] MEDS ORDERED: Dextrose 5% in Water 1,000 ML IV PRN (18:04)
[2020-10-13 18:52] LABS: Troponin I Less than 0.010 ng/mL (< 0.028)
[2020-10-13] MEDS ORDERED: Acetaminophen 325 MG TAB ONE (19:25)
[2020-10-13 21:21] LABS: Troponin I Less than 0.010 ng/mL (< 0.028)
[2020-10-14] MEDS ORDERED: Cyclobenzaprine 10 MG TAB PO PRN ×2 (00:29→00:30)
[2020-10-14] MEDS ORDERED: traZODone HCl 50 MG TAB PO SCH ×3 (00:30→21:00)
[2020-10-14 00:37] VITALS: BMI 52.9
[2020-10-14] MEDS ORDERED: tiZANidine HCl 4 MG TAB PO PRN (00:47)
[2020-10-14 02:15] LABS: SARS-CoV-2 PCR by NAA Not Detected (NotDetected)
[2020-10-14 05:38] LABS: #Basophils 0.1 thou/uL (0.0-0.2); #Eosinphils 0.2 thou/uL (0.0-0.7); #Lymphocytes 3.1 thou/uL (1.20-3.40); #Monocytes 0.3 thou/uL (0.11-0.59); %Basophils 0.7 % (0.0-1.0); %Eosinophils 2.2 % (0.0-10.0); %Lymphocytes 40.9 % (21.0-51.0); %Monocytes 4.4 % (0.0-10.0); %Neutrophils 51.6 % (42.0-75.0); Hemoglobin 12.7 g/dL (12.0-16.0); Mean Corpuscular HGB CONC 33.2 g/dL (32.0-36.0); Mean Corpuscular Hemoglobin 29.2 pg (27.0-31.0); Mean Corpuscular Volume 87.8 fL (78.0-98.0); Mean Platelet Volume 8.2 fL (7.4-10.4); Platelet Count 235 thou/uL (130-400); RBC Distribution Width 11.3 % (11.5-14.5); Red Blood Cell (RBC) Count 4.36 mill/uL (4.20-5.40); White Blood Cell (WBC) Count 7.7 thou/uL (4.8-10.8)
[2020-10-14 06:07] LABS: Anion Gap 17 mmol/L (10-20); BUN (Urea Nitrogen) 15 mg/dL (7.0-18.7); Calc. Creatinine Clearance 221 mL/min (70-130); Calcium 9.8 mg/dL (7.8-10.44); Carbon Dioxide 24 mmol/L (22-29); Cardiac Risk 7.3 (Less than 4.5); Chloride 98 mmol/L (98-107); Cholesterol 227 mg/dl (< 200 Desired); Glucose 224 mg/dL (70-105); HDL Cholesterol 31 mg/dL (>60 Neg Risk); LDL Cholesterol, Calculated 118 mg/dL; Potassium 3.7 mmol/L (3.5-5.1); Sodium 135 mmol/L (136-145); Triglycerides 388 mg/dL (Less than 150)
[2020-10-14] MEDS ORDERED: Alogliptin 25 MG TAB PO SCH (09:00)
[2020-10-14] MEDS ORDERED: Aspirin 325 mg Enteric Coated Tablet PO SCH (09:00)
[2020-10-14] MEDS ORDERED: Regadenoson 0.4 MG/5 ML SYRINGE ONE (10:42)
[2020-10-14 11:57] VITALS: BP 115/61; TEMP 97.7
[2020-10-14] MEDS ORDERED: Lantus 1000 UNITS/10 ML VIAL SC SCH (21:00)
== END 2020-10-14 16:11 | disposition home or self-care (01) ==
LOC: ERS 14:23 → ERHOLD 17:07 → 2SE 23:47
PROVIDERS: ADMIT Internal Medicine; ATTEND Hospitalist
DX: R07.89 Other chest pain (principal); R00.2 Palpitations; E11.9 Type 2 diabetes mellitus without complications; I10 Essential (primary) hypertension; H90.5 Unspecified sensorineural hearing loss; J44.9 Chronic obstructive pulmonary disease, unspecified; G89.29 Other chronic pain; E78.2 Mixed hyperlipidemia; M54.9 Dorsalgia, unspecified; E66.01 Morbid (severe) obesity due to excess calories; Z68.43 Body mass index [BMI] 50.0-59.9, adult; Z87.891 Personal history of nicotine dependence; Z91.14 Patient's other noncompliance with medication regimen; Z79.4 Long term (current) use of insulin; Z79.899 Other long term (current) drug therapy; Z88.0 Allergy status to penicillin; Z88.5 Allergy status to narcotic agent; Z88.8 Allergy status to other drugs, medicaments and biological substances; Z91.041 Radiographic dye allergy status; Z20.822 Contact with and (suspected) exposure to COVID-19
CPT/HCPCS: 36415; 36416; 71045; 78452; 80048; 80053; 80061; 84443; 84484; 85025; 85379; 87635; 93005; 93017; 94760; A9500; G0378; J1815; J2785; U0003; U0005